=== PATIENT | female | born 1940 | race Caucasian/White ===

== ENCOUNTER 2016-08-10 20:24 | Emergency (ER) | payer BC ==
[2016-08-10 20:55] VITALS: BP 117/50
--- NOTE | 2016-08-10 21:12 | UC ---
Hand/Wrist HPI - HPI Summary HPI Summary: FOOSH INJURY TO RIGHT WRIST THIS MORNING ABOUT 8 HRS AGO PAIN AND SWELLING OF THE RIGHT WRIST , - History Of Current Complaint Chief Complaint: UCUpperExtremity Stated Complaint: RIGHT WRIST INJURY (FALL) Time Seen by Provider: 08/10/16 20:42 Hx Obtained From: Patient Onset/Duration: Sudden Onset, Lasting Hours - 8 HRS AGO, Still Present Severity Initially: Moderate Severity Currently: Moderate Character Of Pain: Aching, Stiffness Aggravating Factor(s): Movement, Lifting, Flexion, Extension Alleviating: Nothing Associated Signs And Symptoms: Positive: Swelling, Weakness. Negative: Redness , Bruising, Numbness/Tingling - Allergies/Home Medications Allergies/Adverse Reactions: Allergies Allergy/AdvReac Type Severity Reaction Status Date / Time No Known Allergies Allergy Verified 08/10/16 20:41 Home Medications: Home Medications Acetaminophen TAB* [Tylenol TAB*] 650 mg PO Q4H PRN 08/10/16 [History Confirmed 08/10/16] Alendronate TAB (NF) [Fosamax TAB (NF)] 10 mg PO WEEKLY 08/10/16 [History Confirmed 08/10/16] PMH/Surg Hx/FS Hx/Imm Hx Previously Healthy: Yes - Surgical History Surgical History: Yes Surgery Procedure, Year, and Place: bi-lat carpel tunnel, x 3 - Family History Known Family History: Negative: Diabetes - Social History Alcohol Use: None Substance Use Type: None Smoking Status (MU): Never Smoked Tobacco Review of Systems Constitutional: Negative Skin: Negative Eyes: Negative ENT: Negative Respiratory: Negative Musculoskeletal: Other: - RIGHT WRIST PAIN All Other Systems Reviewed And Are Negative: Yes Physical Exam Triage Information Reviewed: Yes Appearance: Well-Appearing, No Pain Distress, Well-Nourished Vital Signs: Initial Vital Signs Temp 97.6 F 08/10/16 20:33 Pulse 70 08/10/16 20:33 Resp 16 08/10/16 20:33 BP 117/50 08/10/16 20:33 Pulse Ox 100 08/10/16 20:33 Vital Signs Reviewed: Yes Eyes: Positive: Conjunctiva Clear ENT: Positive: Normal ENT inspection, Hearing grossly normal, Pharynx normal Neck: Positive: Supple, Nontender, No Lymphadenopathy Respiratory Exam: Normal Respiratory: Positive: Chest non-tender, Lungs clear, Normal breath sounds Cardiovascular: Positive: RRR, No Murmur, Pulses Normal Musculoskeletal: Positive: Other: - RIGHT WIRST : + SWELLING , TENDERNESS DISTAL RADIUD , LIMITED ROM ON FLEXION AND EXTENSION LIMITED STRENGTH Hand/Wrist Course/Dx - Differential Dx/Diagnosis Provider Diagnoses: RIGHT WRIST SPRAIN Discharge - Discharge Plan Condition: Stable Disposition: HOME Patient Education Materials: Wrist Sprain (ED) Referrals: Oz Decker MD [Medical Doctor] - 5 Days Joel Andrea MD [Primary Care Provider] - 7 Days Additional Instructions: IMPRESSION: NO DEFINITIVE FRACTURE. POSSIBLE MILD SCAPHOLUNATE DISSOCIATION. SUGGEST FOLLOW-UP IF THERE IS PERSISTENT CONCERN
--- NOTE | 2016-08-10 21:12 | RAD ---
INDICATION: Right wrist injury COMPARISON: None TECHNIQUE: AP, lateral, and oblique views were obtained. FINDINGS: There is osteopenia. There is minor osteoarthritis but the radiocarpal joint near the radial styloid. There is no definitive fracture. There is minimal widening of the scapholunate space. There is mild diffuse soft tissue swelling. IMPRESSION: NO DEFINITIVE FRACTURE. POSSIBLE MILD SCAPHOLUNATE DISSOCIATION. SUGGEST FOLLOW-UP IF THERE IS PERSISTENT CONCERN
== END 2016-08-10 21:34 | disposition home or self-care (01) ==
LOC: UCCORT 20:24
DX: S63.501A Unspecified sprain of right wrist, initial encounter (principal); W19.XXXA Unspecified fall, initial encounter; Y93.9 Activity, unspecified; Y92.9 Unspecified place or not applicable
CPT/HCPCS: 99203; G0463

== ENCOUNTER 2018-02-24 07:49 | Inpatient (IN) | payer MEDICARE ==
--- NOTE | 2018-02-11 09:14 | HP ---
HISTORY AND PHYSICAL: DATE OF ADMISSION: 02/24/18 ATTENDING PROVIDER: Dr. Katiana Clinton * (DICTATED BY JASBIR ABDI) HISTORY OF PRESENT ILLNESS: Ms. Damico is a 78-year-old female scheduled for an upcoming right total hip arthroplasty on 02/24/18. She has had 3 years of increasing severe right hip pain. She has failed conservative management and has elected to proceed with a right total hip arthroplasty. PAST MEDICAL HISTORY: Hepatitis. PAST SURGICAL HISTORY: 1. x3. 2. Appendectomy during one of the C-sections. 3. Bilateral carpal tunnel. MEDICATIONS: 1. Alendronate sodium 70 mg one p.o. q. weekly. 2. Multivitamin adult one by mouth every day. 3. Fish oil. 4. Glucosamine and chondroitin. ALLERGIES: No known drug allergies. FAMILY HISTORY: Maternal side hypertension. She has 1 brother with cancer. SOCIAL HISTORY: The patient lives with her . 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 She denies any tobacco, alcohol or recreational drug use. She is right-hand dominant. REVIEW OF SYSTEMS: General: The patient denies any fevers, chills, night sweats. No known anesthesia problems. HEENT: Denies any headaches, lightheadedness or syncopal episode. Cardiothoracic: Denies any chest pain, heart palpitations or edema. Pulmonary: Denies any shortness of breath with exertion, chronic cough, COPD, or asthma. GI: Denies any nausea or vomiting, diarrhea or constipation. : Denies any nocturia, urinary frequency or urgency. MSK: Denies any chronic or intermittent back pain or fractures. Neuro: Denies any paresthesias, numbness or tingling. Integument: Denies any abrasions, lesions, rashes, lumps, or open sores. PHYSICAL EXAMINATION GENERAL: The patient is alert and oriented x3, appropriate mood and affect, in no acute distress. HEENT: Normocephalic atraumatic. Hearing and vision are grossly intact. PULMONARY: Lungs are clear to auscultation bilaterally with no wheezes, rales or rhonchi. CARDIO: Regular rate and rhythm. Normal S1 and S2. No appreciable S3 or S4. No murmurs, rubs or gallops. MSK: Right lower extremity: The patient's skin is intact. No abrasions, lesions or open wounds. Hip flexion to 80 degrees with groin pain. Lacks 5 degrees from neutral and has no internal rotation. She has about 25 degrees of external rotation with groin pain. She can actively flex and abduct the hip, but there is also groin pain. She is neurovascularly intact distally with a 2+ dorsalis pedis pulse. IMPRESSION: Right hip osteoarthritis, severe, end stage. PLAN: Plan to the OR for a right total hip arthroplasty on 02/24/18 to be performed by Dr. Katiana Clinton. The patient will return in 10 to 14 days postoperatively for suture removal and followup. The risks and benefits and complications were discussed with the patient and informed consent was obtained. JASBIR ABDI [id number]/CPS #: [id number] [place]
[~2018-02-24 07:49] MED LIST: Buffered Lidocaine 0.9% SYRIN* 5 ML/SYR SYRINGE INTRADERM ONE; Propofol* 500 MG/50 ML BTL ONE; ceFAZolin 2 GM PREMIX (*) 2 GM/50 ML BAG IVPB ONE
--- OUTSIDE RECORDS SUMMARY | 2018-02-24 07:55 | XMS REPORT ---
:1940 External Reference #:[id number] Author Organization [employer] Address [address] [facility] [address] Phone [phone] Care Team Providers Name Role Phone Joel Andrea MD Primary Care Physician Unavailable Payers Type Date Identification Numbers Payment Provider Subscriber Health Maintenance Policy Number: Medicare Blue [facility] Hailey Damico Organization (O) [id number] PayID: [id number] [address] [address] [place] [address] Problems Date Description Provider Status Onset: 01/15/2018 Arthralgia of the pelvic region and thigh Katiana Clinton M.D. Active Onset: 01/14/2018 Localized, primary osteoarthritis of the Katiana Clinton M.D. Active pelvic region and thigh Family History Date Family Member(s) Problem(s) Comments General frontal Lobe deterioration Mother Diabetes of heart attack at 84 Social History Type Date Description Comments Marital Status Lives With Spouse Occupation Not Currently Working ETOH Use Denies alcohol use Smoking Patient has never smoked Recreational Drug Use Denies Drug Use Daily Caffeine Consumes on average 2 cups of regular coffee per day Exercise Type/Frequency Exercises regularly Allergies, Adverse Reactions, Alerts Date Description Reaction Status Severity Comments 08/26/2016 NKDA active Medications Medication Date Status Form Strength Qnty SIG Indications Ordering Provider Alendronate Active Tablets 70mg 1 po q Villatoro, Sodium 00 weekly Danielle, PRODUCTION CONTROL COORDINATOR Multivitamin Active Tablets 1 by Unknown Adult 00 mouth every day Vital Signs Date Vital Result Comment 02/06/2018 Height 63 inches 5'3" Weight 132.00 lb Heart Rate 66 /min BP Systolic Sitting 110 mmHg BP Diastolic Sitting 70 mmHg Respiratory Rate 16 /min Pain Level 6 BMI (Body Mass Index) 23.4 kg/m2 01/14/2018 Height 63 inches 5'3" Weight 130.00 lb BP Systolic Sitting 128 mmHg BP Diastolic Sitting 68 mmHg Respiratory Rate 16 /min Body Temperature 98.3 F Pain Level 5 BMI (Body Mass Index) 23.0 kg/m2 09/16/2016 Height 63 inches 5'3" Weight 132.00 lb BP Systolic Sitting 122 mmHg BP Diastolic Sitting 68 mmHg Respiratory Rate 16 /min Pain Level 2 BMI (Body Mass Index) 23.4 kg/m2 08/26/2016 Height 63 inches 5'3" Weight 132.00 lb Heart Rate 74 /min BP Systolic Sitting 124 mmHg BP Diastolic Sitting 76 mmHg BMI (Body Mass Index) 23.4 kg/m2 Results Description No Information Procedures Description No Information Encounters Type Date Location Provider CPT E/M Dx Office Visit 01/14/2018 [facility] Katiana Clinton M.D. 79637 M25.551 9:45a [facility] [place] M16.11 Office Visit 09/16/2016 9:15a [facility] [address] M25.331 [employer] [facility] AT [place] Office Visit 08/26/2016 10:15[place] [facility] [address] M25.331 [facility] AT [place] Plan of Care Future Appointment(s):03/09/2018 9:15 am - Katiana Clinton M.D. at [facility]02/24/2018 10:30 am - Hernan David PA-C at [facility]02/24/2018 10:30 am - JASBIR Pruitt at [facility]02/24/2018 10:30 am - Katiana Clinton M.D. at [facility]02/06/2018 - Katiana Clinton M.D.M25.551 Pain in right hipFollow up:Follow up: 2 weeks after [id number] Unilateral primary osteoarthritis, right hip
--- OUTSIDE RECORDS SUMMARY | 2018-02-24 07:55 | XMS REPORT ---
:1940 External Reference #:[id number] Author Organization [employer] Address [address] [facility] [place] [address] Phone [phone] Care Team Providers Name Role Phone Joel Andrea MD Primary Care Physician Unavailable Payers Type Date Identification Numbers Payment Provider Subscriber Health Maintenance Policy Number: Medicare Blue [facility] Hailey Damico Organization (O) [id number] PayID: [id number] [address] [address] [place] [address] Problems Date Description Provider Status Onset: 01/15/2018 [...] po q Villatoro, Sodium 00 weekly Danielle, OLERICULTURIST Multivitamin Active Tablets 1 by Unknown Adult [...] Visit 01/14/2018 [facility] Katiana Clinton M.D. 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 AT [place] Plan of Care Future Appointment(s):03/09/2018 9:15 am - Katiana Clinton M.D. at [facility]02/24/2018 10:30 am - Hernan David PA-C at [facility]02/24/2018 10:30 am - JASBIR Pruitt at [facility]02/24/2018 10:30 am - Katiana Clinton M.D. at [facility]02/06/2018 - Katiana Clinton M.D.M25.551 Pain in right hipFollow up:Follow up: 2 weeks after [id number] Unilateral primary osteoarthritis, right hip
--- OUTSIDE RECORDS SUMMARY | 2018-02-24 07:56 | XMS REPORT ---
:1940 External Reference #:[id number] Author Organization [facility] Address [address] [place] [address] Phone [phone] Care Team Providers Name Role Phone Joel Andrea MD Primary Care Physician Unavailable Payers Type Date Identification Numbers Payment Provider Subscriber Commercial Policy Number: [id number] Medicare Blue Ppo Hailey Damico PayID: [id number] [place] [address] Problems Date Description Provider Status Onset: 05/30/2011 Mixed hyperlipidemia Joel Andrea MD Active Onset: 05/30/2011 Lymphadenopathy Joel Andrea MD Active Onset: 05/30/2011 Disorder of skin Joel Andrea MD Active Onset: 12/12/2011 Lyme disease Joel Andrea MD Active Family History Date Family Member(s) Problem(s) Comments General Melanoma General Heart Disease General Hypertension General Parkinson's General Hypercholesterolemia General Diabetes Mellitus, II Father Hyperlipidemia Father Hypertension First Brother Dementia First Brother Parkinson's Disease Second Brother Dementia Second Brother Second Brother ALS Social History Type Date Description Comments Cigarette Use Denies Smoking ETOH Use Rarely consumes alcohol Smoking Patient has never smoked Allergies, Adverse Reactions, Alerts Date Description Reaction Status Severity Comments 11/22/2010 NKDA active Medications Medication Date Status Form Strength Qnty SIG Indications Ordering Provider Alendronate 02/04/ Active Tablets 70mg 14tabs take 1 Elyn Sodium 2018 tablet by MD Emre mouth weekly Vitamin D 11/22/ Active Capsules 1000Unit 180cap 1 po qd Elyn 2010 s MD Emre [place] 3 / Fish 04/03/ Active 1000/200 1 cap po Elyn Oil 2010 mg qd otc MD Emre Multivitamins 03/31/ Active Tablets 100tab 1 po qd Brigido Gonzales s MD Te Doxycycline 08/24/ Hx Tablets 100mg 60tabs 1 by mouth Chaseyn Monohydrate 2014 - by bid Ring, 2014 Doxycycline 12/11/ Hx Caps DR 100mg 60caps 1 po bid Elyn Hyclate 2011 - Part Ring, 2011 Doxycycline 11/22/ Hx Capsules 100mg 28caps 1 po bid Chaseyn Hyclate 2010 - Ring, 2010 Glucosamine-Cho 04/03/ Hx Capsules 500-400mg 1 po bid Elyn ndroitin 2009 - Emre, 2017 Metamucil 04/03/ Hx Capsules 0.52gm qhs Joel Andrea MD 2015 Aspir-81 04/03/ Hx Tablets DR 81mg 90tabs qd Joel 2009 Valentin Andrea MD 2015 Benadryl 01/23/ Hx Capsules 25mg 50caps 1 po prn 691.8 Shea 2009 - as Te, 09/15/ kathrine Cooley 2017 Betamethasone 01/23/ Hx Cream 0.1% 30gm apply 691.8 Shea Valerate 2009 - sparingly Te, 03/05/ delano Cooley 2016 affected areas daily Calcium/Vitamin 03/31/ Hx Tablets 500/200 1 po qd Brigido Traore 2009 - MD Te 2017 Fosamax / Hx Tablets 70mg 12tabs 1 qweek Aidan, 0000 - Maryellen 05/30/ Vale [employer] 2010 Medications Administered in Office Medication Date Status Form Strength Qnty SIG Indications Ordering Provider H1N1 Administered Injection Brigido Campbell Administration 009 MD Te -Use Immunizations CPT Code Status Date Vaccine Lot # [id number] Given 05/12/2017 Influenza Virus (Afluria) Split Virus 3 Years [id number] Of Age And Older 02441 Given 01/06/2017 Pneumococcal Conjugate Vaccine 13 Valent For [id number] Intramuscular Use Q2037 Given 07/08/2016 Influenza Vaccine (Fluvirin) 5 Years Of Age Or [id number] Older Q2037 Given 11/28/2015 Influenza Vaccine (Fluvirin) 5 Years Of Age Or Older Q2038 Given 08/11/2014 Influenza Vaccine (Fluzone) Administered Age 3 And Older Q2038 Given 08/11/2014 Influenza Vaccine (Fluzone) Administered Age 3 [id number] And Older Q2037 Given 07/13/2013 Influenza Vaccine (Fluvirin) 5 Years Of Age Or Older [id number] Given 07/13/2013 Influenza Vaccine (Fluvirin) 5 Years Of Age Or [id number] Older 20978 Given 06/22/2012 Tetanus,Diphtheria,Adut/Adol Pertussis Q2037 Given 06/10/2012 Influenza Vaccine (Fluvirin) 5 Years Of Age Or Older Q2037 Given 06/10/2012 Influenza Vaccine (Fluvirin) 5 Years Of Age Or [id number] Older 07151 Given 03/18/2012 Zostavax [id number] Q2036 Given 05/30/2011 Flulaval [id number] Given 05/04/2009 Influenza Vaccine 32546 Given 06/11/[place] [address] Given 12/22/2003 Tetanus And Diptheria Toxiods Vital Signs Date Vital Result Comment 02/04/2018 BP Systolic 128 mmHg BP Diastolic 70 mmHg Heart Rate 84 /min Height 62.25 inches 5'2.25" Weight 132.00 lb BMI (Body Mass Index) 23.9 kg/m2 O2 % BldC Oximetry 96 % 09/15/2017 BP Systolic 124 mmHg BP Diastolic 68 mmHg Heart Rate 68 /min Height 62.25 inches 5'2.25" Weight 130.00 lb BMI (Body Mass Index) 23.6 kg/m2 O2 % BldC Oximetry 94 % 05/12/2017 BP Systolic 110 mmHg BP Diastolic 64 mmHg Height 62.25 inches 5'2.25" Weight 130.00 lb BMI (Body Mass Index) 23.6 kg/m2 01/09/2017 BP Systolic 122 mmHg BP Diastolic 80 mmHg 01/06/2017 BP Systolic 120 mmHg BP Diastolic 72 mmHg Height 65 inches 5'5" Weight 128.00 lb BMI (Body Mass Index) 21.3 kg/m2 08/23/2016 BP Systolic 140 mmHg BP Diastolic 90 mmHg 07/08/2016 BP Systolic 122 mmHg BP Diastolic 74 mmHg Height 64 inches 5'4" Weight 135.00 lb BMI (Body Mass Index) 23.2 kg/m2 03/05/2016 BP Systolic 128 mmHg BP Diastolic 68 mmHg Height 64 inches 5'4" Weight 136.00 lb BMI (Body Mass Index) 23.3 kg/m2 11/28/2015 BP Systolic 140 mmHg BP Diastolic 80 mmHg Height 64 inches 5'4" Weight 141.00 lb BMI (Body Mass Index) 24.2 kg/m2 05/18/2015 BP Systolic 122 mmHg BP Diastolic 70 mmHg Height 64 inches 5'4" Weight 136.00 lb BMI (Body Mass Index) 23.3 kg/m2 08/24/2014 BP Systolic 118 mmHg BP Diastolic 76 mmHg Height 64 inches 5'4" Weight 142.00 lb BMI (Body Mass Index) 24.4 kg/m2 02/08/2014 BP Systolic 132 mmHg BP Diastolic 70 mmHg Height 64 inches 5'4" Weight 145.00 lb BMI (Body Mass Index) 24.9 kg/m2 08/12/2013 BP Systolic 120 mmHg BP Diastolic 76 mmHg Height 66 inches 5'6" Weight 143.00 lb BMI (Body Mass Index) 23.1 kg/m2 06/22/2012 BP Systolic 130 mmHg BP Diastolic 80 mmHg Height 66 inches 5'6" Weight 148.00 lb BMI (Body Mass Index) 23.9 kg/m2 12/12/2011 BP Systolic 120 mmHg BP Diastolic 60 mmHg Height 66 inches 5'6" 12/03/2011 BP Systolic 120 mmHg BP Diastolic 70 mmHg Height 66 inches 5'6" Weight 144.00 lb BMI (Body Mass Index) 23.2 kg/m2 05/30/2011 BP Systolic 122 mmHg BP Diastolic 60 mmHg Height 66 inches 5'6" Weight 147.00 lb BMI (Body Mass Index) 23.7 kg/m2 11/22/2010 BP Systolic 118 mmHg BP Diastolic 74 mmHg Height 66 inches 5'6" Weight 149.00 lb BMI (Body Mass Index) 24.0 kg/m2 04/26/2010 BP Systolic 108 mmHg BP Diastolic 70 mmHg Weight 148.00 lb 04/03/2010 BP Systolic 120 mmHg BP Diastolic 76 mmHg Weight 150.00 lb Results Test Date Test Result H/L Range Note General Health Panel [facility] 02/02/2018 TSH 2.72 mIU/L 0.40-4.50 1, 2 T4,Free 1.1 ng/dL 0.8-1.8 1 CBC W/ Diff & PLT 02/02/2018 WBC 4.0 thous/L 3.8-10.8 1 RBC 4.21 mill/L 3.80-5.10 1 Hemoglobin 13.3 g/dL 11.7-15.5 1 Hematocrit 40.1 % 35.0-45.0 1 MCV 95.3 FL 80.0-100.0 1 MCH 31.5 pg 27.0-33.0 1 MCHC 33.1 g/dL 32.0-36.0 1 RDW 14.8 % 11.0-15.0 1 Platelet Count 209 thous/L 140-400 1 Platelet Sufficiency PENDING 1 MPV 9.6 FL 7.5-12.5 1 Neutrophils,Absolute 2610 cells/L 9846-1668 1 Bands,Absolute PENDING 1 Metamyelocytes,Absolute PENDING 1 Myelocytes,Absolute PENDING 1 Promyelocytes,Absolute PENDING 1 Lymphocytes,Absolute 990 cells/L 850-3900 1 Monocytes,Absolute 320 cells/L 200-950 1 Eosinophils,Absolute 90 cells/L 15-500 1 Basophils,Absolute 20 cells/L 0-200 1 Blast Cells,Absolute PENDING 1 Nucleated RBC,Absolute PENDING 1 Total Neutrophils,% 65 % 40-75 1 Bands,% PENDING 1 Metamyelocytes,% PENDING 1 Myelocytes,% PENDING 1 Promyelocytes,% PENDING 1 Total Lymphocytes,% 25 % 12-47 1 Monocytes,% 8 % 4-12 1 Eosinophils,% 2 % 0-4 1 Basophils,% 1 % 0-1 1, 3 Blasts,% PENDING 1 Nucleated RBC PENDING 1 RBC Morphology PENDING 1 Anisocytosis PENDING 1 Poikilocytosis PENDING 1 Microcytosis PENDING 1 Macrocytosis PENDING 1 Polychromasia PENDING 1 Hypochromasia PENDING 1 Target Cells PENDING 1 Basophilic Stippling PENDING 1 Comment PENDING 1 Comp Metabolic Panel 02/02/2018 Sodium 139 mmol/L 135-146 1 Potassium 4.4 mmol/L 3.5-5.3 1 Chloride 105 mmol/L 98-110 1 Carbon Dioxide 26 mmol/L 20-31 1 Calcium 9.1 mg/dL 8.6-10.4 1 Alkaline Phosphatase 42 U/L 33-130 1 Ast 17 U/L 10-35 1 Alt 12 U/L 6-29 1 Bilirubin,Total 0.5 mg/dL 0.2-1.2 1 Glucose 94 mg/dL 65-99 1, 4 Urea Nitrogen (BUN) 11 mg/dL 7-25 1 Creatinine 0.69 mg/dL 0.60-0.93 1, 5 BUN/Creatinine Ratio 16.2 6-22 1 Protein,Total 7.0 g/dL 6.1-8.1 1 Albumin 4.4 g/dL 3.6-5.1 1 Globulin,Calculated 2.6 g/dL 1.9-3.7 1 A/G Ratio 1.7 1.0-2.5 1 Egfr Non-Afr. Afghan 85 ML/MIN/1.73M2 > Or=60 1 Egfr 98 ML/MIN/1.73M2 > Or=60 1 Lipid Panel 02/02/2018 Cholesterol 206 mg/dL High <199 1 HDL Cholesterol 65 mg/dL >50 1 Cholesterol/HDL Ratio 3.2 CALC <5.0 1 LDL Chol,Calculated 118 mg/dL High 0-100 1, 6 Triglycerides 115 mg/dL <150 1 Non-HDL Cholesterol 141 mg/dL High <130 1, 7 CBC W/ Diff & PLT 09/08/2017 WBC 3.2 thous/L Low 3.8-10.8 RBC 4.63 mill/L 3.80-5.10 Hemoglobin 14.8 g/dL 11.7-15.5 Hematocrit 43.9 % 35.0-45.0 MCV 94.8 FL 80.0-100.0 MCH 32.0 pg 27.0-33.0 MCHC 33.7 g/dL 32.0-36.0 RDW 14.4 % 11.0-15.0 Platelet Count 194 thous/L 140-400 Platelet Sufficiency PENDING MPV 9.1 FL 7.5-12.5 Neutrophils,Absolute 1440 cells/L Low 5350-0079 Bands,Absolute PENDING Metamyelocytes,Absolute PENDING Myelocytes,Absolute PENDING Promyelocytes,Absolute PENDING Lymphocytes,Absolute 1250 cells/L 850-3900 Monocytes,Absolute 400 cells/L 200-950 Eosinophils,Absolute 60 cells/L 15-500 Basophils,Absolute 30 cells/L 0-200 Blast Cells,Absolute PENDING Nucleated RBC,Absolute PENDING Total Neutrophils,% 45 % 40-75 Bands,% PENDING Metamyelocytes,% PENDING Myelocytes,% PENDING Promyelocytes,% PENDING Total Lymphocytes,% 39 % 12-47 Monocytes,% 13 % High 4-12 Eosinophils,% 2 % 0-4 Basophils,% 1 % 0-1 8 Blasts,% PENDING Nucleated RBC PENDING RBC Morphology PENDING Anisocytosis PENDING Poikilocytosis PENDING Microcytosis PENDING Macrocytosis PENDING Polychromasia PENDING Hypochromasia PENDING Target Cells PENDING Basophilic Stippling PENDING Comment PENDING Basic Metabolic Panel 05/06/2017 Sodium 140 mmol/L 135-146 Potassium 4.6 mmol/L 3.5-5.3 Chloride 104 mmol/L 98-110 Carbon Dioxide 30 mmol/L 20-31 Calcium 9.3 mg/dL 8.6-10.4 Glucose 88 mg/dL 65-99 9 Urea Nitrogen 14 mg/dL 7-25 Creatinine 0.76 mg/dL 0.60-0.93 10 BUN/Creatinine Ratio 18.3 6-22 Egfr Non-Afr. Afghan 77 ML/MIN/1.73M2 > Or=60 Egfr 89 ML/MIN/1.73M2 > Or=60 CBC W/ Diff & PLT 05/06/2017 WBC 4.5 thous/L 3.8-10.8 RBC 4.38 mill/L 3.80-5.10 Hemoglobin 13.9 g/dL 11.7-15.5 Hematocrit 41.1 % 35.0-45.0 MCV 93.8 FL 80.0-100.0 MCH 31.9 pg 27.0-33.0 MCHC 34.0 g/dL 32.0-36.0 RDW 14.7 % 11.0-15.0 Platelet Count 215 thous/L 140-400 Platelet Sufficiency NORMAL Normal MPV 9.0 FL 7.5-12.5 Neutrophils,Absolute 2840 cells/L 1780-6664 Bands,Absolute PENDING Metamyelocytes,Absolute PENDING Myelocytes,Absolute PENDING Promyelocytes,Absolute PENDING Lymphocytes,Absolute 1190 cells/L 850-3900 Monocytes,Absolute 320 cells/L 200-950 Eosinophils,Absolute 100 cells/L 15-500 Basophils,Absolute 10 cells/L 0-200 Blast Cells,Absolute PENDING Nucleated RBC,Absolute PENDING Total Neutrophils,% 64 % 40-75 Bands,% PENDING Metamyelocytes,% PENDING Myelocytes,% PENDING Promyelocytes,% PENDING Total Lymphocytes,% 27 % 12-47 Monocytes,% 7 % 4-12 Eosinophils,% 2 % 0-4 Basophils,% 0 % 0-1 11 Blasts,% PENDING Nucleated RBC PENDING RBC Morphology NORMAL Anisocytosis PENDING Poikilocytosis PENDING Microcytosis PENDING Macrocytosis PENDING Polychromasia PENDING Hypochromasia PENDING Target Cells PENDING Basophilic Stippling PENDING Comment PENDING Comp Metabolic Panel 12/24/2016 Sodium 139 mmol/L 135-146 1 Potassium 4.5 mmol/L 3.5-5.3 1 Chloride 105 mmol/L 98-110 1 Carbon Dioxide 25 mmol/L 20-31 1 Calcium 9.2 mg/dL 8.6-10.4 1 Alkaline Phosphatase 49 U/L 33-130 1 Ast 20 U/L 10-35 1 Alt 13 U/L 6-29 1 Bilirubin,Total 0.4 mg/dL 0.2-1.2 1 Glucose 90 mg/dL 65-99 1, 12 Urea Nitrogen 17 mg/dL 7-25 1 Creatinine 0.72 mg/dL 0.60-0.93 1, 13 BUN/Creatinine Ratio 23.9 High 6-22 1 Protein,Total 6.9 g/dL 6.1-8.1 1 Albumin 4.3 g/dL 3.6-5.1 1 Globulin,Calculated 2.6 g/dL 1.9-3.7 1 A/G Ratio 1.6 1.0-2.5 1 Egfr Non-Afr. Afghan 82 ML/MIN/1.73M2 > Or=60 1 Egfr 96 ML/MIN/1.73M2 > Or=60 1 Hepatic Function Panel 12/24/2016 Alkaline Phosphatase 49 U/L 33-130 1 Ast 20 U/L 10-35 1 Alt 13 U/L 6-29 1 Bilirubin,Total 0.4 mg/dL 0.2-1.2 1 Bilirubin,Direct 0.1 mg/dL < Or=0.2 1 Protein,Total 6.9 g/dL 6.1-8.1 1 Albumin 4.3 g/dL 3.6-5.1 1 Globulin,Calculated 2.6 g/dL 1.9-3.7 1 A/G Ratio 1.6 1.0-2.5 1 General Health Panel 12/24/2016 TSH 3.45 mIU/L 0.40-4.50 1, 14 T4,Free 1.1 ng/dL 0.8-1.8 1 Laboratory test finding 12/24/2016 Cholesterol 217 mg/dL High 125-200 1 CBC W/ Diff & PLT 12/24/2016 WBC 4.4 thous/L 3.8-10.8 1 RBC 4.38 mill/L 3.80-5.10 1 Hemoglobin 13.5 g/dL 11.7-15.5 1 Hematocrit 41.0 % 35.0-45.0 1 MCV 93.7 FL 80.0-100.0 1 MCH 30.9 pg 27.0-33.0 1 MCHC 32.9 g/dL 32.0-36.0 1 RDW 14.2 % 11.0-15.0 1 Platelet Count 226 thous/L 140-400 1 Platelet Sufficiency PENDING 1 MPV 9.0 FL 7.5-12.5 1 Neutrophils,Absolute 2400 cells/L 2309-0981 1 Bands,Absolute PENDING 1 Metamyelocytes,Absolute PENDING 1 Myelocytes,Absolute PENDING 1 Promyelocytes,Absolute PENDING 1 Lymphocytes,Absolute 1380 cells/L 850-3900 1 Monocytes,Absolute 360 cells/L 200-950 1 Eosinophils,Absolute 230 cells/L 15-500 1 Basophils,Absolute 10 cells/L 0-200 1 Blast Cells,Absolute PENDING 1 Nucleated RBC,Absolute PENDING 1 Total Neutrophils,% 55 % 40-75 1 Bands,% PENDING 1 Metamyelocytes,% PENDING 1 Myelocytes,% PENDING 1 Promyelocytes,% PENDING 1 Total Lymphocytes,% 32 % 12-47 1 Monocytes,% 8 % 4-12 1 Eosinophils,% 5 % High 0-4 1 Basophils,% 0 % 0-1 1, 15 Blasts,% PENDING 1 Nucleated RBC PENDING 1 RBC Morphology PENDING 1 Anisocytosis PENDING 1 Poikilocytosis PENDING 1 Microcytosis PENDING 1 Macrocytosis PENDING 1 Polychromasia PENDING 1 Hypochromasia PENDING 1 Target Cells PENDING 1 Basophilic Stippling PENDING 1 Comment PENDING 1 Basic Metabolic Panel 07/01/2016 Sodium 139 mmol/L 135-146 1 Potassium 4.3 mmol/L 3.5-5.3 1 Chloride 104 mmol/L 98-110 1 Carbon Dioxide 29 mmol/L 20-31 1 Calcium 9.5 mg/dL 8.6-10.4 1 Glucose 91 mg/dL 65-99 1, 16 Urea Nitrogen 18 mg/dL 7-25 1 Creatinine 0.77 mg/dL 0.60-0.93 1, 17 BUN/Creatinine Ratio 22.9 High 6-22 1, 18 Egfr Non-Afr. Afghan 76 ML/MIN/1.73M2 > Or=60 1 Egfr 88 ML/MIN/1.73M2 > Or=60 1 Lipid Panel 07/01/2016 Cholesterol 230 mg/dL High 125-200 1 HDL Cholesterol 68 mg/dL > Or=46 1 Cholesterol/HDL Ratio 3.4 < Or=5.0 1 LDL Chol,Calculated 143 mg/dL High <130 1, 19 Triglycerides 96 mg/dL <150 1 Non-HDL Cholesterol 162 mg/dL High 1, 20 CBC W/ Diff & PLT 07/01/2016 WBC 4.4 thous/L 3.8-10.8 1 RBC 4.29 mill/L 3.80-5.10 1 Hemoglobin 13.2 g/dL 11.7-15.5 1 Hematocrit 40.4 % 35.0-45.0 1 MCV 94.2 FL 80.0-100.0 1 MCH 30.8 pg 27.0-33.0 1 MCHC 32.7 g/dL 32.0-36.0 1 RDW 14.3 % 11.0-15.0 1 Platelet Count 219 thous/L 140-400 1 Platelet Sufficiency PENDING 1 MPV 9.7 FL 7.5-11.5 1 Neutrophils,Absolute 2540 cells/L 8922-7865 1 Bands,Absolute PENDING 1 Metamyelocytes,Absolute PENDING 1 Myelocytes,Absolute PENDING 1 Promyelocytes,Absolute PENDING 1 Lymphocytes,Absolute 1420 cells/L 850-3900 1 Monocytes,Absolute 350 cells/L 200-950 1 Eosinophils,Absolute 90 cells/L 15-500 1 Basophils,Absolute 20 cells/L 0-200 1 Blast Cells,Absolute PENDING 1 Nucleated RBC,Absolute PENDING 1 Total Neutrophils,% 58 % 40-75 1 Bands,% PENDING 1 Metamyelocytes,% PENDING 1 Myelocytes,% PENDING 1 Promyelocytes,% PENDING 1 Total Lymphocytes,% 32 % 12-47 1 Monocytes,% 8 % 4-12 1 Eosinophils,% 2 % 0-4 1 Basophils,% 0 % 0-1 1, 21 Blasts,% PENDING 1 Nucleated RBC PENDING 1 RBC Morphology PENDING 1 Anisocytosis PENDING 1 Poikilocytosis PENDING 1 Microcytosis PENDING 1 Macrocytosis PENDING 1 Polychromasia PENDING 1 Hypochromasia PENDING 1 Target Cells PENDING 1 Basophilic Stippling PENDING 1 Comment PENDING 1 Lipid Panel 02/27/2016 Cholesterol 211 mg/dL High 125-200 1 HDL Cholesterol 60 mg/dL > Or=46 1 Cholesterol/HDL Ratio 3.5 < Or=5.0 1 LDL Chol,Calculated 131 mg/dL High <130 1, 22 Triglycerides 100 mg/dL <150 1 Non-HDL Cholesterol 151 mg/dL 1, 23 Hepatic Function Panel 11/21/2015 Alkaline Phosphatase 52 U/L 33-130 Ast 19 U/L 10-35 Alt 12 U/L 6-29 Bilirubin,Total 0.6 mg/dL 0.2-1.2 Bilirubin,Direct 0.1 mg/dL < Or=0.2 Protein,Total 7.4 g/dL 6.1-8.1 Albumin 4.6 g/dL 3.6-5.1 Globulin,Calculated 2.8 g/dL 1.9-3.7 A/G Ratio 1.7 1.0-2.5 General Health Panel 11/21/2015 TSH 2.09 mIU/L 0.40-4.50 24 T4,Free 1.0 ng/dL 0.8-1.8 CMP W/O Egfr 11/21/2015 Sodium 139 mmol/L 135-146 Potassium 4.4 mmol/L 3.5-5.3 Chloride 102 mmol/L 98-110 Carbon Dioxide 28 mmol/L 19-30 Calcium 9.8 mg/dL 8.6-10.4 Alkaline Phosphatase 52 U/L 33-130 Ast 19 U/L 10-35 Alt 12 U/L 6-29 Bilirubin,Total 0.6 mg/dL 0.2-1.2 Glucose 84 mg/dL 65-99 25 Urea Nitrogen 14 mg/dL 7-25 Creatinine 0.82 mg/dL 0.60-0.93 26 BUN/Creatinine Ratio 17.1 6-22 Protein,Total 7.4 g/dL 6.1-8.1 Albumin 4.6 g/dL 3.6-5.1 Globulin,Calculated 2.8 g/dL 1.9-3.7 A/G Ratio 1.7 1.0-2.5 Lipid Panel 11/21/2015 Cholesterol 233 mg/dL High 125-200 HDL Cholesterol 65 mg/dL > Or=46 Cholesterol/HDL Ratio 3.6 < Or=5.0 LDL Chol,Calculated 144 mg/dL High <130 27 Triglycerides 122 mg/dL <150 Non-HDL Cholesterol 168 mg/dL High 28 CBC W/ Diff & PLT 11/21/2015 WBC 4.3 thous/L 3.8-10.8 RBC 4.39 mill/L 3.80-5.10 Hemoglobin 13.3 g/dL 11.7-15.5 Hematocrit 41.2 % 35.0-45.0 MCV 94.0 FL 80.0-100.0 MCH 30.4 pg 27.0-33.0 MCHC 32.3 g/dL 32.0-36.0 RDW 13.7 % 11.0-15.0 Platelet Count 219 thous/L 140-400 Platelet Sufficiency PENDING MPV 9.6 FL 7.5-11.5 Neutrophils,Absolute 2900 cells/L 3311-8245 Bands,Absolute PENDING Metamyelocytes,Absolute PENDING Myelocytes,Absolute PENDING Promyelocytes,Absolute PENDING Lymphocytes,Absolute 1240 cells/L 850-3900 Monocytes,Absolute 120 cells/L Low 200-950 Eosinophils,Absolute 60 cells/L 15-500 Basophils,Absolute 10 cells/L 0-200 Blast Cells,Absolute PENDING Nucleated RBC,Absolute PENDING Total Neutrophils,% 67 % 40-75 Bands,% PENDING Metamyelocytes,% PENDING Myelocytes,% PENDING Promyelocytes,% PENDING Total Lymphocytes,% 29 % 12-47 Monocytes,% 3 % Low 4-12 Eosinophils,% 1 % 0-4 Basophils,% 0 % 0-1 29 Blasts,% PENDING Nucleated RBC PENDING RBC Morphology PENDING Anisocytosis PENDING Poikilocytosis PENDING Microcytosis PENDING Macrocytosis PENDING Polychromasia PENDING Hypochromasia PENDING Target Cells PENDING Basophilic Stippling PENDING Comment PENDING CBC W/ Diff & PLT 05/15/2015 WBC 5.6 thous/L 3.8-10.8 1 RBC 4.29 mill/L 3.80-5.10 1 Hemoglobin 13.3 g/dL 11.7-15.5 1 Hematocrit 41.0 % 35.0-45.0 1 MCV 95.6 FL 80.0-100.0 1 MCH 31.1 pg 27.0-33.0 1 MCHC 32.5 g/dL 32.0-36.0 1 RDW 13.8 % 11.0-15.0 1 Platelet Count 214 thous/L 140-400 1 Platelet Sufficiency PENDING 1 MPV 9.7 FL 7.5-11.5 1 Neutrophils,Absolute 3840 cells/L 7544-5022 1 Bands,Absolute PENDING 1 Metamyelocytes,Absolute PENDING 1 Myelocytes,Absolute PENDING 1 Promyelocytes,Absolute PENDING 1 Lymphocytes,Absolute 1310 cells/L 850-3900 1 Monocytes,Absolute 400 cells/L 200-950 1 Eosinophils,Absolute 60 cells/L 15-500 1 Basophils,Absolute 20 cells/L 0-200 1 Blast Cells,Absolute PENDING 1 Nucleated RBC,Absolute PENDING 1 Total Neutrophils,% 68 % 40-75 1 Bands,% PENDING 1 Metamyelocytes,% PENDING 1 Myelocytes,% PENDING 1 Promyelocytes,% PENDING 1 Total Lymphocytes,% 23 % 12-47 1 Monocytes,% 7 % 4-12 1 Eosinophils,% 1 % 0-4 1 Basophils,% 0 % 0-1 1, 30 Blasts,% PENDING 1 Nucleated RBC PENDING 1 RBC Morphology PENDING 1 Anisocytosis PENDING 1 Poikilocytosis PENDING 1 Microcytosis PENDING 1 Macrocytosis PENDING 1 Polychromasia PENDING 1 Hypochromasia PENDING 1 Target Cells PENDING 1 Basophilic Stippling PENDING 1 Comment PENDING 1 BMP W/O Egfr 05/15/2015 Sodium 139 mmol/L 135-146 1 Potassium 5.0 mmol/L 3.5-5.3 1 Chloride 101 mmol/L 98-110 1 Carbon Dioxide 30 mmol/L 19-30 1 Calcium 9.7 mg/dL 8.6-10.4 1 Glucose 86 mg/dL 65-99 1, 31 Urea Nitrogen 13 mg/dL 7-25 1 Creatinine 0.83 mg/dL 0.60-0.93 1, 32 BUN/Creatinine Ratio 15.7 6-22 1 [facility] 25-Hydroxy D 08/11/2014 Vitamin D,25-Oh,Total 39 ng/mL 30- 100 1 (D2,D3) LC/MS Vitamin D,25-Oh,D3 39 ng/mL 1 Vitamin D,25-Oh,D2 <4 ng/mL 1, 33 TSH & T4,Free 08/11/2014 TSH 3.56 mIU/L 0.40-4.50 1, 34 T4,Free 1.0 ng/dL 0.8-1.8 1 Comp Metabolic Panel 08/11/2014 Sodium 141 mmol/L 135-146 1 Potassium 4.5 mmol/L 3.5-5.3 1 Chloride 104 mmol/L 98-110 1 Carbon Dioxide 28 mmol/L 19-30 1 Calcium 9.4 mg/dL 8.6-10.4 1 Alkaline Phosphatase 56 U/L 33-130 1 Ast 24 U/L 10-35 1 Alt 17 U/L 6-29 1 Bilirubin,Total 0.6 mg/dL 0.2-1.2 1 Glucose 77 mg/dL 65-99 1, 35 Urea Nitrogen 19 mg/dL 7-25 1 Creatinine 0.82 mg/dL 0.60-0.93 1, 36 BUN/Creatinine Ratio 23.7 High 6-22 1 Protein,Total 7.5 g/dL 6.1-8.1 1 Albumin 4.6 g/dL 3.6-5.1 1 Globulin,Calculated 2.9 g/dL 1.9-3.7 1 A/G Ratio 1.6 1.0-2.5 1 Egfr Non-Afr. Afghan 71 ML/MIN/1.73M2 > Or=60 1 Egfr 83 ML/MIN/1.73M2 > Or=60 1 Lipid Panel 08/11/2014 Cholesterol 244 mg/dL High 125-200 1 HDL Cholesterol 71 mg/dL > Or=46 1 Cholesterol/HDL Ratio 3.4 < Or=5.0 1 LDL Chol,Calculated 148 mg/dL High <130 1, 37 Triglycerides 125 mg/dL <150 1 Non-HDL Cholesterol 172 mg/dL High 1, 38 CBC W/ Diff & PLT 08/11/2014 WBC 5.3 thous/L 3.8-10.8 1 RBC 4.30 mill/L 3.80-5.10 1 Hemoglobin 13.6 g/dL 11.7-15.5 1 Hematocrit 40.5 % 35.0-45.0 1 MCV 94.2 FL 80.0-100.0 1 MCH 31.6 pg 27.0-33.0 1 MCHC 33.5 g/dL 32.0-36.0 1 RDW 14.4 % 11.0-15.0 1 Platelet Count 243 thous/L 140-400 1 Platelet Sufficiency PENDING 1 Neutrophils,Absolute 3260 cells/L 0968-6085 1 Bands,Absolute PENDING 1 Metamyelocytes,Absolute PENDING 1 Myelocytes,Absolute PENDING 1 Promyelocytes,Absolute PENDING 1 Lymphocytes,Absolute 1450 cells/L 850-3900 1 Monocytes,Absolute 420 cells/L 200-950 1 Eosinophils,Absolute 160 cells/L 15-500 1 Basophils,Absolute 20 cells/L 0-200 1 Blast Cells,Absolute PENDING 1 Nucleated RBC,Absolute PENDING 1 Total Neutrophils,% 61 % Not Established 1 Bands,% PENDING 1 Metamyelocytes,% PENDING 1 Myelocytes,% PENDING 1 Promyelocytes,% PENDING 1 Total Lymphocytes,% 27 % Not Established 1 Monocytes,% 8 % Not Established 1 Eosinophils,% 3 % Not Established 1 Basophils,% 0 % Not Established 1 Blasts,% PENDING 1 Nucleated RBC PENDING 1 RBC Morphology PENDING 1 Anisocytosis PENDING 1 Poikilocytosis PENDING 1 Microcytosis PENDING 1 Macrocytosis PENDING 1 Polychromasia PENDING 1 Hypochromasia PENDING 1 Target Cells PENDING 1 Basophilic Stippling PENDING 1 Comment PENDING 1 Hepatic Function Panel 08/11/2014 Alkaline Phosphatase 56 U/L 33-130 1 Ast 24 U/L 10-35 1 Alt 17 U/L 6-29 1 Bilirubin,Total 0.6 mg/dL 0.2-1.2 1 Bilirubin,Direct 0.1 mg/dL < Or=0.2 1 Protein,Total 7.5 g/dL 6.1-8.1 1 Albumin 4.6 g/dL 3.6-5.1 1 Globulin,Calculated 2.9 g/dL 1.9-3.7 1 A/G Ratio 1.6 1.0-2.5 1 Vitamin D, 25 Hydroxy,LC/MS/MS 07/13/2013 Vitamin D,25-Oh,Total 31 ng/mL 30-100 1 Vitamin D,25-Oh,D3 31 ng/mL 1 Vitamin D,25-Oh,D2 <4 ng/mL 1, 39 TSH & T4,Free 07/13/2013 TSH 3.22 mIU/L 0.40-4.50 1, 40 T4,Free 1.1 ng/dL 0.8-1.8 1 Hepatic Function Panel 07/13/2013 Alkaline Phosphatase 52 U/L 33-130 1 Ast 21 U/L 10-35 1 Alt 16 U/L 6-29 1 Bilirubin,Total 0.5 mg/dL 0.2-1.2 1 Bilirubin,Direct 0.1 mg/dL < Or=0.2 1 Protein,Total 7.1 g/dL 6.1-8.1 1 Albumin 4.5 g/dL 3.6-5.1 1 Globulin,Calculated 2.6 g/dL 1.9-3.7 1 A/G Ratio 1.8 1.0-2.5 1 Laboratory test finding 07/13/2013 Creatine Kinase,Total 100 U/L 29-143 1 Comp Metabolic Panel 07/13/2013 Sodium 140 mmol/L 135-146 1 Potassium 4.7 mmol/L 3.5-5.3 1 Chloride 103 mmol/L 98-110 1 Carbon Dioxide 30 mmol/L 19-30 1 Calcium 9.5 mg/dL 8.6-10.4 1 Alkaline Phosphatase 52 U/L 33-130 1 Ast 21 U/L 10-35 1 Alt 16 U/L 6-29 1 Bilirubin,Total 0.5 mg/dL 0.2-1.2 1 Glucose 83 mg/dL 65-99 1, 41 Urea Nitrogen 16 mg/dL 7-25 1 Creatinine 0.83 mg/dL 0.60-0.93 1, 42 BUN/Creatinine Ratio 19.4 6-22 1 Protein,Total 7.1 g/dL 6.1-8.1 1 Albumin 4.5 g/dL 3.6-5.1 1 Globulin,Calculated 2.6 g/dL 1.9-3.7 1 A/G Ratio 1.8 1.0-2.5 1 Egfr Non-Afr. [place] 71 ML/MIN/1.73M2 > Or=60 1 Egfr 82 ML/MIN/1.73M2 > Or=60 1 Lipid Panel 07/13/2013 Cholesterol 227 mg/dL High 125-200 1 HDL Cholesterol 72 mg/dL > Or=46 1 Cholesterol/HDL Ratio 3.2 < Or=5.0 1 LDL Chol,Calculated 132 mg/dL High <130 1, 43 Triglycerides 115 mg/dL <150 1 Non-HDL Cholesterol 155 mg/dL 1, 44 CBC W/ Diff & PLT 07/13/2013 WBC 4.7 thous/L 3.8-10.8 1 RBC 4.30 mill/L 3.80-5.10 1 Hemoglobin 13.6 g/dL 11.7-15.5 1 Hematocrit 40.1 % 35.0-45.0 1 MCV 93.3 FL 80.0-100.0 1 MCH 31.6 pg 27.0-33.0 1 MCHC 33.9 g/dL 32.0-36.0 1 RDW 13.9 % 11.0-15.0 1 Platelet Count 233 thous/L 140-400 1 Neutrophils,Absolute 2800 cells/L 1019-2814 1 Lymphocytes,Absolute 1510 cells/L 850-3900 1 Monocytes,Absolute 300 cells/L 200-950 1 Eosinophils,Absolute 50 cells/L 15-500 1 Basophils,Absolute 10 cells/L 0-200 1 Total Neutrophils,% 60 % Not Established 1 Total Lymphocytes,% 32 % Not Established 1 Monocytes,% 6 % Not Established 1 Eosinophils,% 1 % Not Established 1 Basophils,% 0 % Not Established 1 Laboratory test finding 06/10/2012 Creatine Kinase,Total 131 U/L 29-143 1 Comp Metabolic Panel 06/10/2012 Sodium 140 mmol/L 135-146 1 Potassium 4.7 mmol/L 3.5-5.3 1 Chloride 102 mmol/L 98-110 1 Carbon Dioxide 31 mmol/L 21-33 1 Calcium 9.6 mg/dL 8.6-10.4 1 Alkaline Phosphatase 50 U/L 33-130 1 Ast 22 U/L 10-35 1 Alt 14 U/L 6-40 1 Bilirubin,Total 0.5 mg/dL 0.2-1.2 1 Glucose 78 mg/dL 65-99 1, 45 Urea Nitrogen 13 mg/dL 7-25 1 Creatinine 0.75 mg/dL 0.60-0.93 1, 46 BUN/Creatinine Ratio 16.7 6-22 1 Protein,Total 7.0 g/dL 6.2-8.3 1 Albumin 4.4 g/dL 3.6-5.1 1 Globulin,Calculated 2.6 g/dL 2.2-3.9 1 A/G Ratio 1.8 1.0-2.1 1 Egfr Non-Afr. Afghan 81 ML/MIN/1.73M2 > Or=60 1 Egfr 94 ML/MIN/1.73M2 > Or=60 1 TSH & T4,Free 06/10/2012 TSH 3.46 mIU/L 0.40-4.50 1, 47 T4,Free 1.2 ng/dL 0.8-1.8 1, 48 Vitamin D, 25 Hydroxy 06/10/2012 Vitamin D,25-Oh,Total 53 ng/mL 30-100 1 Vitamin D,25-Oh,D3 53 ng/mL 1 Vitamin D,25-Oh,D2 <4 ng/mL 1, 49 CBC W/ Diff & PLT 06/10/2012 WBC 4.3 thous/L 3.8-10.8 1 RBC 4.21 mill/L 3.80-5.10 1 Hemoglobin 13.8 g/dL 11.7-15.5 1 Hematocrit 41.5 % 35.0-45.0 1 MCV 98.5 FL 80.0-100.0 1 MCH 32.8 pg 27.0-33.0 1 MCHC 33.3 g/dL 32.0-36.0 1 RDW 14.0 % 11.0-15.0 1 Platelet Count 203 thous/L 140-400 1 Platelet Sufficiency NORMAL Normal 1 Neutrophils,Absolute 2320 cells/L 0743-6355 1 Lymphocytes,Absolute 1450 cells/L 850-3900 1 Monocytes,Absolute 390 cells/L 200-950 1 Eosinophils,Absolute 110 cells/L 15-500 1 Basophils,Absolute 20 cells/L 0-200 1 Total Neutrophils,% 54 % 38-80 1 Total Lymphocytes,% 34 % 15-49 1 Monocytes,% 9 % 0-13 1 Eosinophils,% 3 % 0-8 1 Basophils,% 0 % 0-2 1 RBC Morphology NORMAL 1 Laboratory test finding 06/10/2012 LDL Cholesterol,Direct 134 mg/dL High < 130 1, 50 Liver Panel 06/10/2012 Alkaline Phosphatase 50 U/L 33-130 1 GGT 16 U/L 3-65 1 Ast 22 U/L 10-35 1 Alt 14 U/L 6-40 1 LD 199 U/L 120-250 1 Bilirubin,Total 0.5 mg/dL 0.2-1.2 1 Bilirubin,Direct 0.1 mg/dL < Or=0.2 1 Protein,Total 7.0 g/dL 6.2-8.3 1 Albumin 4.4 g/dL 3.6-5.1 1 Cholesterol 214 mg/dL High 125-200 1 Laboratory test 12/03/2011 Lyme Disease,Eia 2.64 INDEX High Less Than 0.91 51 finding W/Refl WB Lyme Disease Igg,Igm 12/03/2011 Lyme Disease NEGATIVE Negative 52 (Igg),WB 18 KD (Igg) Band NONREACTIVE Nonreactive 23 KD (Igg) Band NONREACTIVE Nonreactive 28 KD (Igg) Band NONREACTIVE Nonreactive 30 KD (Igg) Band REACTIVE Nonreactive 39 KD (Igg) Band NONREACTIVE Nonreactive 41 KD (Igg) Band REACTIVE Nonreactive 45 KD (Igg) Band NONREACTIVE Nonreactive 58 KD (Igg) Band NONREACTIVE Nonreactive 66 KD (Igg) Band NONREACTIVE Nonreactive 93 KD (Igg) Band NONREACTIVE Nonreactive Lyme Disease (Igm),WB NEGATIVE Negative 53 23 KD (Igm) Band NONREACTIVE Nonreactive 39 KD (Igm) Band NONREACTIVE Nonreactive 41 KD (Igm) Band REACTIVE Nonreactive Lipid Panel 11/27/2011 Cholesterol 222 mg/dL High 125-200 HDL Cholesterol 63 mg/dL > Or=46 Cholesterol/HDL Ratio 3.5 < Or=5.0 LDL Chol,Calculated 139 mg/dL High <130 54 Triglycerides 98 mg/dL <150 Non-HDL Cholesterol 160 mg/dL 55 Hepatic Function Panel 05/21/2011 Alkaline Phosphatase 43 U/L 33-130 1 Ast 21 U/L 10-35 1 Alt 14 U/L 6-40 1 Bilirubin,Total 0.5 mg/dL 0.2-1.2 1 Bilirubin,Direct 0.1 mg/dL < Or=0.2 1 Protein,Total 7.3 g/dL 6.2-8.3 1 Albumin 4.6 g/dL 3.6-5.1 1 Globulin,Calculated 2.7 g/dL 2.2-3.9 1 A/G Ratio 1.7 1.0-2.1 1 TSH & T4,Free 05/21/2011 TSH,3RD Generation 3.86 mIU/L 0.40-4.50 1, 56 T4,Free 1.2 ng/dL 0.8-1.8 1 Laboratory test 05/21/2011 LDL Cholesterol,Direct 153 mg/dL High <130 1, 57 finding Comp Metabolic Panel 05/21/2011 Sodium 141 mmol/L 135-146 1 Potassium 4.6 mmol/L 3.5-5.3 1 Chloride 102 mmol/L 98-110 1 Carbon Dioxide 31 mmol/L 21-33 1 Calcium 9.8 mg/dL 8.6-10.2 1 Alkaline Phosphatase 43 U/L 33-130 1 Ast 21 U/L 10-35 1 Alt 14 U/L 6-40 1 Bilirubin,Total 0.5 mg/dL 0.2-1.2 1 Glucose 86 mg/dL 65-99 1, 58 Urea Nitrogen 15 mg/dL 7-25 1 Creatinine 0.92 mg/dL 0.60-1.18 1 BUN/Creatinine Ratio 16.6 6-22 1 Protein,Total 7.3 g/dL 6.2-8.3 1 Albumin 4.6 g/dL 3.6-5.1 1 Globulin,Calculated 2.7 g/dL 2.2-3.9 1 A/G Ratio 1.7 1.0-2.1 1 Egfr Non-Afr. Afghan 64 ML/MIN/1.73M2 > Or=60 1 Egfr 74 ML/MIN/1.73M2 > Or=60 1 CBC W/ Diff & PLT 05/21/2011 WBC 4.6 thous/L 3.8-10.8 1 RBC 4.28 mill/L 3.80-5.10 1 Hemoglobin 13.7 g/dL 11.7-15.5 1 Hematocrit 40.7 % 35.0-45.0 1 MCV 95.1 FL 80.0-100.0 1 MCH 31.9 pg 27.0-33.0 1 MCHC 33.6 g/dL 32.0-36.0 1 RDW 13.7 % 11.0-15.0 1 Platelet Count 195 thous/L 140-400 1 Platelet Sufficiency NORMAL Normal 1 Neutrophils,Absolute 2530 cells/L 7947-8681 1 Lymphocytes,Absolute 1670 cells/L 850-3900 1 Monocytes,Absolute 320 cells/L 200-950 1 Eosinophils,Absolute 80 cells/L 15-500 1 Basophils,Absolute 20 cells/L 0-200 1 Total Neutrophils,% 55 % 38-80 1 Total Lymphocytes,% 36 % 15-49 1 Monocytes,% 7 % 0-13 1 Eosinophils,% 2 % 0-8 1 Basophils,% 0 % 0-2 1 RBC Morphology NORMAL 1 Laboratory test finding 02/12/2011 BUN 14 mg/dL 5-23 59 Estimated GFR 02/12/2011 Creatinine 0.6 mg/dL 0.5-1.4 Glom Filtration Rate, Estimate >60 mL/min >60 If >60 mL/min >60 60 Laboratory test finding 02/12/2011 Phosphorous 3.3 mg/dL 2.4-4.7 61 Vitamin D,25-Hydroxy 41.7 ng/mL 32.0-100.0 62 PTH Intact W/Calcium 02/12/2011 Calcium 8.9 mg/dL 8.6-10.2 . See Note 63 PTH,Intact 25 pg/mL 15- Laboratory test 02/12/2011 Thyroid Stim 2.22 uIU/mL 0.49-4.67 64 finding Hormone Laboratory test 11/15/2010 LDL 137 mg/dL High <130 1, 65 finding Cholesterol,Direct HDL Cholesterol 65 mg/dL > Or=46 1 Triglycerides 152 mg/dL High <150 1 Cholesterol 243 mg/dL High 125-200 1 Comp Metabolic Panel 04/19/2010 Sodium 141 mmol/L 135-146 1 Potassium 4.4 mmol/L 3.5-5.3 1 Chloride 103 mmol/L 98-110 1 Carbon Dioxide 28 mmol/L 21-33 1 Calcium 9.3 mg/dL 8.6-10.2 1 Alkaline Phosphatase 40 U/L 33-130 1 Ast 21 U/L 10-35 1 Alt 15 U/L 6-40 1 Bilirubin,Total 0.4 mg/dL 0.2-1.2 1 Glucose 82 mg/dL 65-99 1, 66 Urea Nitrogen 15 mg/dL 7-25 1 Creatinine 0.79 mg/dL 0.60-1.18 1 BUN/Creatinine Ratio 18.5 6-22 1 Protein,Total 7.1 g/dL 6.2-8.3 1 Albumin 4.5 g/dL 3.6-5.1 1 Globulin,Calculated 2.6 g/dL 2.2-3.9 1 A/G Ratio 1.8 1.0-2.1 1 Egfr Non-Afr. Afghan >60 ML/MIN/1.73M2 > Or=60 1 Egfr >60 ML/MIN/1.73M2 > Or=60 1 Lipid Panel 04/19/2010 Cholesterol 232 mg/dL High 125-200 1 HDL Cholesterol 63 mg/dL > Or=46 1 Cholesterol/HDL Ratio 3.7 < Or=5.0 1 LDL Chol,Calculated 144 mg/dL High <130 1, 67 Triglycerides 126 mg/dL <150 1 Hepatic Function Panel 04/19/2010 Alkaline Phosphatase 40 U/L 33-130 1 Ast 21 U/L 10-35 1 Alt 15 U/L 6-40 1 Bilirubin,Total 0.4 mg/dL 0.2-1.2 1 Bilirubin,Direct 0.1 mg/dL < Or=0.2 1 Protein,Total 7.1 g/dL 6.2-8.3 1 Albumin 4.5 g/dL 3.6-5.1 1 Globulin,Calculated 2.6 g/dL 2.2-3.9 1 A/G Ratio 1.8 1.0-2.1 1 CBC W/ Diff & PLT 04/19/2010 WBC 4.2 thous/L 3.8-10.8 1 RBC 4.19 mill/L 3.80-5.10 1 Hemoglobin 13.8 g/dL 11.7-15.5 1 Hematocrit 40.0 % 35.0-45.0 1 MCV 95.4 FL 80.0-100.0 1 MCH 32.9 pg 27.0-33.0 1 MCHC 34.5 g/dL 32.0-36.0 1 RDW 13.8 % 11.0-15.0 1 Platelet Count 209 thous/L 140-400 1 Platelet Sufficiency NORMAL Normal 1 Neutrophils,Absolute 2100 cells/L 6504-3197 1 Bands,Absolute DNR cells/L 0-750 1 Metamyelocytes,Absolute DNR cells/L 0 1 Myelocytes,Absolute DNR cells/L 0 1 Promyelocytes,Absolute DNR cells/L 0 1 Lymphocytes,Absolute 1570 cells/L 850-3900 1 Monocytes,Absolute 390 cells/L 200-950 1 Eosinophils,Absolute 90 cells/L 15-500 1 Basophils,Absolute 20 cells/L 0-200 1 Blast Cells,Absolute DNR cells/L 0 1 Nucleated RBC,Absolute DNR cells/L 0 1 Total Neutrophils,% 51 % 38-80 1 Bands,% DNR % 0-10 1 Metamyelocytes,% DNR % 1 Myelocytes,% DNR % 1 Promyelocytes,% DNR % 1 Total Lymphocytes,% 38 % 15-49 1 Monocytes,% 9 % 0-13 1 Eosinophils,% 2 % 0-8 1 Basophils,% 0 % 0-2 1 Blasts,% DNR % 1 Nucleated RBC DNR /100WBC 0 1 RBC Morphology NORMAL 1 Anisocytosis DNR 1 Poikilocytosis DNR 1 Microcytosis DNR 1 Macrocytosis DNR 1 Polychromasia DNR 1 Hypochromasia DNR 1 Target Cells DNR 1 Basophilic Stippling DNR 1 Comment DNR 1 TSH & T4,Free 04/19/2010 TSH,3RD Generation 3.81 mIU/L 0.40-4.50 1, 68 T4,Free 1.0 ng/dL 0.8-1.8 1 Vitamin D, 25 Hydroxy 04/19/2010 Vitamin D,25-Oh,Total 35 ng/mL 30-100 1 Vitamin D,25-Oh,D3 35 ng/mL 1 Vitamin D,25-Oh,D2 <4 ng/mL 1, 69 1 FASTING 2 REFERENCE RANGES BELOW ARE APPLICABLE TO FEMALES FIRST TRIMESTER - 0.26 - 2.66 mIU/L SECOND TRIMESTER - 0.55 - 2.73 mIU/L THIRD TRIMESTER - 0.43 - 2.91 mIU/L 3 Relative blood cell counts (%) should be compared with absolute cell counts (cells/mcL). Relative counts may not be clinically meaningful if the absolute count of one or more cell type is decreased. Reference ranges for relative cell counts derived from: A Manual of Laboratory and Diagnostics Tests, 9th Ed, [employer], 2015. Pediatric Reference Intervals, 7th Ed, [facility] [facility] [employer], 2011. 4 GLUCOSE REFERENCE RANGE BASED ON FASTING SPECIMEN. 5 The upper reference limit for Creatinine is approximately 13% higher for people identified as -Afghan. 6 LDL-C is now calculated using the Aroldo calculation, which is a validated novel method providing better accuracy than the Friedewald equation in the estimation of LDL-C. Cade JARAMILLO et al.PRAKASH.2013;310(19):0284-3907 Desirable range <100 mg/dL for primary prevention; <70 mg/dL for patients with CHD or diabetic patients with >or=2 CHD risk factors. For additional information, please refer to http://education.[employer]etragenetics.Giphy/faq/CIO029(This link is being provided for informational/educational purposes only.) 7 For patients with diabetes plus 1 major ASCVD risk factor, treating to a non-HDL-C goal of <100 mg/dL (LDL-C of <70 mg/ dL) is considered a therapeutic option. 8 Relative blood cell counts (%) should be compared with absolute cell counts (cells/mcL). Relative counts may not be clinically meaningful if the absolute count of one or more cell type is decreased. Reference ranges for relative cell counts derived from: A Manual of Laboratory and Diagnostics Tests, 9th Ed, [employer], 2015. Pediatric Reference Intervals, 7th Ed, [employer], 2011. 9 GLUCOSE REFERENCE RANGE BASED ON FASTING SPECIMEN. 10 The upper reference limit for Creatinine is approximately 13% higher for people identified as -Afghan. 11 Relative blood cell counts (%) should be compared with absolute cell counts (cells/mcL). Relative counts may not be clinically meaningful if the absolute count of one or more cell type is decreased. Reference ranges for relative cell counts derived from: A Manual of Laboratory and Diagnostics Tests, 9th Ed, [employer], 2015. Pediatric Reference Intervals, 7th Ed, [employer], 2011. 12 GLUCOSE REFERENCE RANGE BASED ON FASTING SPECIMEN. 13 The upper reference limit for Creatinine is approximately 13% higher for people identified as -Afghan. 14 REFERENCE RANGES BELOW ARE APPLICABLE TO FEMALES FIRST TRIMESTER - 0.26 - 2.66 mIU/L SECOND TRIMESTER - 0.55 - 2.73 mIU/L THIRD TRIMESTER - 0.43 - 2.91 mIU/L 15 Relative blood cell counts (%) should be compared with absolute cell counts (cells/mcL). Relative counts may not be clinically meaningful if the absolute count of one or more cell type is decreased. Reference ranges for relative cell counts derived from: A Manual of Laboratory and Diagnostics Tests, 9th Ed, [employer], 2015. Pediatric Reference Intervals, 7th Ed, [employer], 2011. 16 GLUCOSE REFERENCE RANGE BASED ON FASTING SPECIMEN. 17 The upper reference limit for Creatinine is approximately 13% higher for people identified as -Afghan. 18 WE RECEIVED YOUR HANDWRITTEN TEST ORDER FOR A CHEMISTRY PANEL CONTAINING 8 TO 13 ANALYTES. WE PERFORMED THE AMA DEFINED BASIC METABOLIC PANEL. IF THIS IS NOT WHAT YOU INTENDED TO ORDER, PLEASE CONTACT YOUR LOCAL DISPLAYER AT SO THAT WE CAN ADJUST OUR BILLING APPROPRIATELY. YOU MAY ALSO INQUIRE ABOUT ALTERNATIVE OR ADDITIONAL TESTING. 19 LDL-CHOLESTEROL RISK CATEGORY* GOAL VERY HIGH (E.G. DIABETES + CVD) <70 MG/DL HIGH (DIABETICS; CHD RISK EQUIVALENTS) <100 MG/DL MODERATELY HIGH (MULTIPLE(2+) RISK FACTORS) <130 MG/DL 0 TO 1 RISK FACTORS <160 MG/DL * NCEP REPORT. CIRCULATION 2004; 110: [phone] 20 Target for non-HDL cholesterol is 30 mg/dL higher than LDL cholesterol target. 21 Relative blood cell counts (%) should be compared with absolute cell counts (cells/mcL). Relative counts may not be clinically meaningful if the absolute count of one or more cell type is decreased. Reference ranges for relative cell counts derived from: A Manual of Laboratory and Diagnostics Tests, 9th Ed, [employer], 2015. Pediatric Reference Intervals, 7th Ed, [employer], 2011. 22 LDL-CHOLESTEROL RISK CATEGORY* GOAL VERY HIGH (E.G. DIABETES + CVD) <70 MG/DL HIGH (DIABETICS; CHD RISK EQUIVALENTS) <100 MG/DL MODERATELY HIGH (MULTIPLE(2+) RISK FACTORS) <130 MG/DL 0 TO 1 RISK FACTORS <160 MG/DL * NCEP REPORT. CIRCULATION 2004; 110: [phone] 23 Target for non-HDL cholesterol is 30 mg/dL higher than LDL cholesterol target. 24 REFERENCE RANGES BELOW ARE APPLICABLE TO FEMALES FIRST TRIMESTER - 0.26 - 2.66 mIU/L SECOND TRIMESTER - 0.55 - 2.73 mIU/L THIRD TRIMESTER - 0.43 - 2.91 mIU/L 25 GLUCOSE REFERENCE RANGE BASED ON FASTING SPECIMEN. 26 The upper reference limit for Creatinine is approximately 13% higher for people identified as -Afghan. 27 LDL-CHOLESTEROL RISK CATEGORY* GOAL VERY HIGH (E.G. DIABETES + CVD) <70 MG/DL HIGH (DIABETICS; CHD RISK EQUIVALENTS) <100 MG/DL MODERATELY HIGH (MULTIPLE(2+) RISK FACTORS) <130 MG/DL 0 TO 1 RISK FACTORS <160 MG/DL * NCEP REPORT. CIRCULATION 2004; 110: 227-239 28 Target for non-HDL cholesterol is 30 mg/dL higher than LDL cholesterol target. 29 Relative blood cell counts (%) should be compared with absolute cell counts (cells/mcL). Relative counts may not be clinically meaningful if the absolute count of one or more cell type is decreased. Reference ranges for relative cell counts derived from: A Manual of Laboratory and Diagnostics Tests, 9th Ed, [employer], 2015. Pediatric Reference Intervals, 7th Ed, [employer], 2011. 30 Relative blood cell counts (%) should be compared with absolute cell counts (cells/mcL). Relative counts may not be clinically meaningful if the absolute count of one or more cell type is decreased. Reference ranges for relative cell counts derived from: A Manual of Laboratory and Diagnostics Tests, 9th Ed, [employer], 2015. Pediatric Reference Intervals, 7th Ed, [facility] [employer], 2011. 31 GLUCOSE REFERENCE RANGE BASED ON FASTING SPECIMEN. 32 The upper reference limit for Creatinine is approximately 13% higher for people identified as -Afghan. 33 25-OHD3 indicates both endogenous production and supplementation. 25-OHD2 is an indicator of exogenous sources such as diet or supplementation. Therapy is based on measurement of Total 25-OHD, with levels <20 ng/mL indicative of Vitamin D deficiency while levels between 20 ng/mL and 30 ng/mL suggest insufficiency. Optimal levels are > or=30ng/mL. For more information on this test, go to [email or web address]/faq/25-OHVitaminD 34 REFERENCE RANGES BELOW ARE APPLICABLE TO FEMALES FIRST TRIMESTER - 0.26 - 2.66 mIU/L SECOND TRIMESTER - 0.55 - 2.73 mIU/L THIRD TRIMESTER - 0.43 - 2.91 mIU/L 35 GLUCOSE REFERENCE RANGE BASED ON FASTING SPECIMEN. 36 The upper reference limit for Creatinine is approximately 13% higher for people identified as -Afghan. 37 LDL-CHOLESTEROL RISK CATEGORY* GOAL VERY HIGH (E.G. DIABETES + CVD) <70 MG/DL HIGH (DIABETICS; CHD RISK EQUIVALENTS) <100 MG/DL MODERATELY HIGH (MULTIPLE(2+) RISK FACTORS) <130 MG/DL 0 TO 1 RISK FACTORS <160 MG/DL * NCEP REPORT. CIRCULATION 2004; 110: [phone] 38 Target for non-HDL cholesterol is 30 mg/dL higher than LDL cholesterol target. 39 25-OHD3 indicates both endogenous production and supplementation. 25-OHD2 is an indicator of exogenous sources such as diet or supplementation. Therapy is based on measurement of Total 25-OHD, with levels <20 ng/mL indicative of Vitamin D deficiency while levels between 20 ng/mL and 30 ng/mL suggest insufficiency. Optimal levels are > or=30ng/mL. For more information on this test, go to http://education.MinuteBuzz/faq/25-OHVitaminD 40 REFERENCE RANGES BELOW ARE APPLICABLE TO FEMALES FIRST TRIMESTER - 0.26 - 2.66 mIU/L SECOND TRIMESTER - 0.55 - 2.73 mIU/L THIRD TRIMESTER - 0.43 - 2.91 mIU/L 41 GLUCOSE REFERENCE RANGE BASED ON FASTING SPECIMEN. 42 The upper reference limit for Creatinine is approximately 13% higher for people identified as -Afghan. 43 LDL-CHOLESTEROL RISK CATEGORY* GOAL VERY HIGH (E.G. DIABETES + CVD) <70 MG/DL HIGH (DIABETICS; CHD RISK EQUIVALENTS) <100 MG/DL MODERATELY HIGH (MULTIPLE(2+) RISK FACTORS) <130 MG/DL 0 TO 1 RISK FACTORS <160 MG/DL * NCEP REPORT. CIRCULATION 2004; 110: [phone] 44 Target for non-HDL cholesterol is 30 mg/dL higher than LDL cholesterol target. 45 GLUCOSE REFERENCE RANGE BASED ON FASTING SPECIMEN. 46 The upper reference limit for Creatinine is approximately 13% higher for people identified as -Afghan. 47 REFERENCE RANGES BELOW ARE APPLICABLE TO FEMALES FIRST TRIMESTER - 0.26 - 2.66 mIU/L SECOND TRIMESTER - 0.55 - 2.73 mIU/L THIRD TRIMESTER - 0.43 - 2.91 mIU/L 48 THE CURRENT LOT OF FREE T4 REAGENT AVAILABLE FROM THE [employer] PRODUCES RESULTS THAT ARE APPROXIMATELY 9% HIGHER THAN PREVIOUS REAGENT LOTS. PLEASE INTERPRET THESE RESULTS ACCORDINGLY. 49 25-OHD3 indicates both endogenous production and supplementation. 25-OHD2 is an indicator of exogenous sources such as diet or supplementation. Therapy is based on measurement of Total 25-OHD, with levels <20 ng/mL indicative of Vitamin D deficiency while levels between 20 ng/mL and 30 ng/mL suggest insufficiency. Optimal levels are > or=30ng/mL. For more information on this test, go to http://[email or web address]/faq/25-OHVitaminD 50 LDL-CHOLESTEROL RISK CATEGORY* GOAL VERY HIGH (E.G. DIABETES + CVD) <70 MG/DL HIGH (DIABETICS; CHD RISK EQUIVALENTS) <100 MG/DL MODERATELY HIGH (MULTIPLE(2+) RISK FACTORS) <130 MG/DL 0 TO 1 RISK FACTORS <160 MG/DL * NCEP REPORT. CIRCULATION 2004; 110: [phone] 51 INDEX INTERPRETATION ----- < OR=0.90 NEGATIVE 0.91 - 1.09 EQUIVOCAL > OR=1.10 POSITIVE DUE TO RECOMMENDATIONS BY THE FOOD AND DRUG ADMINISTRATION (FDA), ALL POSITIVE OR EQUIVOCAL BORELLIA BURGDORFERI ANTIBODY EIA (SCREENING) TESTS WILL BE FOLLOWED BY THE WESTERN BLOT. THE SCREENING TEST FOR B. BURGDORFERI HAS A LOW PREDICTIVE VALUE FOR A NEGATIVE RESULT WHEN USED TO DETECT EARLY INFECTION AND A LOW PREDICTIVE VALUE FOR A POSITIVE RESULT WHEN EXPOSURE HISTORY, SYMPTOMS, AND CLINICAL FINDINGS ARE NOT CONSISTENT WITH LYME DISEASE. POSITIVE OR EQUIVOCAL RESULTS SHOULD NOT BE INTERPRETED TRUE POSITIVES UNTIL A SECOND-STEP TESTING OF THE SPECIMEN IS DONE USING A METHOD THAT IS MORE SPECIFIC FOR ANTIBODIES TO B. BURGDORFERI (E.G. WESTERN BLOT). 52 IGG WESTERN BLOTS WHICH HAVE 5 (OR MORE) OF THE 10 SIGNIFICANT BANDS ARE CONSIDERED POSITIVE FOR SPECIFIC ANTIBODY TO B.BURGDORFERI. (PROCEEDINGS OF THE SECOND CONFERENCE OF LYME DISEASE. [place], [place], 1993.) 53 IGM WESTERN BLOTS WHICH HAVE 2 (OR MORE) OF THE 3 SIGNIFICANT BANDS ARE CONSIDERED POSITIVE FOR SPECIFIC ANTIBODY TO B.BURGDORFERI. (PROCEEDINGS OF THE SECOND CONFERENCE OF LYME DISEASE. [place], [place], 1993.) 54 LDL-CHOLESTEROL RISK CATEGORY* GOAL VERY HIGH (E.G. DIABETES + CVD) <70 MG/DL HIGH (DIABETICS; CHD RISK EQUIVALENTS) <100 MG/DL MODERATELY HIGH (MULTIPLE(2+) RISK FACTORS) <130 MG/DL 0 TO 1 RISK FACTORS <160 MG/DL * NCEP REPORT. CIRCULATION 2004; 110: [phone] 55 Target for non-HDL cholesterol is 30 mg/dL higher than LDL cholesterol target. 56 REFERENCE RANGES BELOW ARE APPLICABLE TO FEMALES FIRST TRIMESTER - 0.20 - 4.70 mIU/L SECOND TRIMESTER - 0.30 - 4.10 mIU/L THIRD TRIMESTER - 0.40 - 2.70 mIU/L 57 LDL-CHOLESTEROL RISK CATEGORY* GOAL VERY HIGH (E.G. DIABETES + CVD) <70 MG/DL HIGH (DIABETICS; CHD RISK EQUIVALENTS) <100 MG/DL MODERATELY HIGH (MULTIPLE(2+) RISK FACTORS) <130 MG/DL 0 TO 1 RISK FACTORS <160 MG/DL * NCEP REPORT. CIRCULATION 2004; 110: [phone] 58 GLUCOSE REFERENCE RANGE BASED ON FASTING SPECIMEN. 59 QUERY: @[facility] Pat ID: QUERY: @[facility] Req #: 60 Note: Persistent reduction for 3 months or more in an eGFR <60 mL/min/1.73 m2 defines CKD. Patients with eGFR values >/=60 mL/min/1.73 m2 may also have CKD if evidence of persistent proteinuria is present. The original MDRD equation for estimated GFR is not valid for patients less than 18 years of age. Additional information may be found at www.kdoqi.org. 61 QUERY: @[facility] Pat ID: QUERY: @[facility] Req #: 62 Recent studies consider the lower limit of 32.0 ng/mL to be a threshold for optimal health. Rogelio MELENDEZ. J Nutr. 2004;135(2):317-22. Performed at: RN - [facility] [address] [id number] [employer] Member: Donavon Noble MD, Phone: [phone] Interpretation Intact PTH Calcium (pg/mL) (mg/dL) Normal 15 - 65 8.6 - 10.2 Primary Hyperparathyroidism >65 >10.2 Secondary Hyperparathyroidism >65 <10.2 Non-Parathyroid Hypercalcemia <65 >10.2 Hypoparathyroidism <15 < 8.6 Non-Parathyroid Hypocalcemia 15 - 65 < 8.6 Performed at: RN - [facility] [address] [id number] [employer] Member: Donavon Noble MD, Phone: [phone] QUERY: @[facility] Pat ID: QUERY: @[facility] Req #: 65 LDL-CHOLESTEROL RISK CATEGORY* GOAL VERY HIGH (E.G. DIABETES + CVD) <70 MG/DL HIGH (DIABETICS; CHD RISK EQUIVALENTS) <100 MG/DL MODERATELY HIGH (MULTIPLE(2+) RISK FACTORS) <130 MG/DL 0 TO 1 RISK FACTORS <160 MG/DL * NCEP REPORT. CIRCULATION 2004; 110: [phone] 66 GLUCOSE REFERENCE RANGE BASED ON FASTING SPECIMEN. 67 LDL-CHOLESTEROL RISK CATEGORY* GOAL VERY HIGH (E.G. DIABETES + CVD) <70 MG/DL HIGH (DIABETICS; CHD RISK EQUIVALENTS) <100 MG/DL MODERATELY HIGH (MULTIPLE(2+) RISK FACTORS) <130 MG/DL 0 TO 1 RISK FACTORS <160 MG/DL * NCEP REPORT. CIRCULATION 2004; 110: [phone] 68 REFERENCE RANGES BELOW ARE APPLICABLE TO FEMALES FIRST TRIMESTER - 0.20 - 4.70 mIU/L SECOND TRIMESTER - 0.30 - 4.10 mIU/L THIRD TRIMESTER - 0.40 - 2.70 mIU/L 69 25-OHD3 indicates both endogenous production and supplementation. 25-OHD2 is an indicator of exogenous sources such as diet or supplementation. Therapy is based on measurement of Total 25-OHD, with levels <20 ng/mL indicative of Vitamin D deficiency while levels between 20 ng/mL and 30 ng/mL suggest insufficiency. Optimal levels are > or=30ng/mL. Procedures Date CPT Code Description Status 02/02/2018 69991 EKG-Tracing & Report Completed 12/24/2016 [id number] EKG-Tracing & Report Completed 12/19/2016 42658 Dxa Bone Density Axial [employer] Inc Vertebral Fracture Completed Assessment 12/19/2016 Bone Mineral Density Test Completed 12/10/2016 45028 Non-Invcorrotid/Comp /Bilat Study Completed 12/10/2016 01988 Echocardiography Completed 12/09/2016 93387 Non-Invcorrotid/Comp /Bilat Study Completed 07/01/2016 Mammogram Completed 11/21/2015 83303 EKG-Tracing & Report Completed 05/18/2015 09454 EKG-Tracing & Report Completed 08/11/2014 24689 EKG-Tracing & Report Completed 08/11/2014 52431 Bone Density Completed 07/14/2013 11213 Spirometry Graphic Record/Max Voluntary Vent Completed 07/13/2013 08320 Holter Monitor Office Completed 07/08/2013 54954 Non-Invcorrotid/Comp /Bilat Study Completed 07/06/2013 39746 Echocardiography Completed 06/12/2012 Colonoscopy Completed 06/11/2012 93422 EKG-Tracing & Report Completed 06/10/2012 52837 Holter Monitor Office Completed 06/09/2012 69167 Non-Invcorrotid/Comp /Bilat Study Completed 06/09/2012 10035 Echocardiography Completed 05/22/2011 14299 EKG-Tracing & Report Completed 05/21/2011 75866 Non-Invcorrotid/Comp /Bilat Study Completed 05/21/2011 58632 Echocardiography Completed 05/21/2011 30364 Holter Monitor Office Completed 04/19/2010 06965 Holter Monitor Office Completed 04/19/2010 48640 EKG-Tracing & Report Completed 04/17/2010 25071 Non-Invcorrotid/Comp /Bilat Study Completed 04/17/2010 73209 Echocardiography Completed Encounters Type Date Location Provider CPT E/M Dx Office Visit 02/04/2018 4:00p [place] [address] M25.551 G31.84 Office Visit 09/15/2017 8:00a [place] [address] M25.551 G31.84 Office Visit 05/12/2017 10:15a [place] [address] I50.32 G31.84 R59.0 Z23 Office Visit 01/09/2017 10:45a [place] [address] M54.31 M25.551 Office Visit 01/06/2017 11:15a [place] [address] M54.31 E78.5 M81.0 I50.32 Z00.01 G31.84 R23.9 Z23 Office Visit 08/23/2016 3:30p [place] [address] M25.531 Office Visit 07/08/2016 3:00p [place] [address] E78.5 M85.9 I50.32 R00.2 I65.23 Z23 Office Visit 03/05/2016 12:15p [place] [address] E78.5 M85.9 Office Visit 11/28/2015 10:30a [place] [address] E78.5 N95.0 Z00.01 G31.84 Z23 Office Visit 05/18/2015 6:30p [place] [address] N95.0 Z01.818 Office Visit 08/24/2014 9:00a [place] [address] 733.90 272.4 424.0 V72.2 V72.0 V70.0 GENERAL Office Visit 02/08/2014 11:00a [place] [address] 424.0 733.90 Office Visit 08/12/2013 1:00p [place] [address] 424.0 785.10 428.32 V72.2 V72.0 V70.0 GENERAL Office Visit 06/22/2012 10:30a [place] [address] 272.2 785.10 424.0 428.32 V72.2 V72.0 V06.1 V70.0 GENERAL Office Visit 12/12/2011 12:15p [place] [address] 088.81 GENERAL 272.2 785.6 709.8 Office Visit 12/03/2011 10:00a [place] [address] 088.81 272.2 424.0 268.9 GENERAL Office Visit 05/30/2011 12:15p [place] [address] 272.2 424.0 268.9 V72.0 V70.0 785.6 709.8 V04.81 GENERAL Office Visit 11/22/2010 2:00p [place] [address] 088.81 272.2 424.0 272.9 277.9 V72.2 V72.0 268.9 785.10 433.10 GENERAL Office Visit 04/26/2010 11:00a [place] [address] 272.2 424.0 V72.2 V72.0 268.9 V70.0 GENERAL Office Visit 04/03/2010 3:00p [place] [address] 272.2 691.8 733.00 424.0 V72.2 V72.0 268.9 785.10 433.10 GENERAL Office Visit 01/23/2010 3:10p Main Office Shea Tiwari M.D. 11282 691.8 Plan of Care Future Appointment(s):05/12/2018 2:15 pm - Joel Andrea MD at Main [id number] 9:00 am - Nurse at Main Office
--- OUTSIDE RECORDS SUMMARY | 2018-02-24 07:57 | XMS REPORT ---
:1940 External Reference #:[id number] Author Organization [facility] Address [address] [place] [address] Phone [phone] Care Team Providers Name Role Phone Joel Andrea MD Primary Care Physician Unavailable Payers Type Date Identification Numbers Payment Provider Subscriber Commercial Policy Number: [id number] Medicare Blue Ppo Hailey Damico PayID: [id number] [place] [address] Problems Date Description Provider Status Onset: 05/30/2011 [...] po qd Elyn 2010 s MD Emre [place] 3 / Fish 04/03/ Active 1000/200 1 [...] Influenza Virus (Afluria) Split Virus 3 Years [id number] Of Age And Older 92499 Given 01/06/2017 Pneumococcal Conjugate Vaccine 13 Valent For [id number] Intramuscular Use Q2037 Given 07/08/2016 Influenza Vaccine (Fluvirin) 5 Years Of Age Or [id number] Older Q2037 Given 11/28/2015 Influenza Vaccine (Fluvirin) 3 Years Of Age Or Older Q2038 Given 08/11/2014 Influenza Vaccine (Fluzone) Administered Age 3 And Older Q2038 Given 08/11/2014 Influenza Vaccine (Fluzone) Administered Age 3 329jd And Older Q2037 Given 07/13/2013 Influenza Vaccine (Fluvirin) 3 Years Of Age Or Older Q2037 Given 07/13/2013 Influenza Vaccine (Fluvirin) 5 Years Of Age Or 7kj4r Older 66945 Given 06/22/2012 Tetanus,Diphtheria,Adut/Adol Pertussis Q2037 Given 06/10/2012 Influenza Vaccine (Fluvirin) 3 Years Of Age Or Older Q2037 Given 06/10/2012 Influenza Vaccine (Fluvirin) 5 Years Of Age Or [id number] Older 85084 Given 03/18/2012 Zostavax 0071ae Q2036 Given 05/30/2011 Flulaval [id number] 77695 Given 05/04/2009 Influenza Vaccine 29921 Given 06/11/2007 [place] [address] Given 12/22/2003 Tetanus And Diptheria Toxiods Vital [...] 9.6 FL 7.5-12.5 1 Neutrophils,Absolute 2610 cells/L 7134-3930 1 Bands,Absolute PENDING 1 Metamyelocytes,Absolute PENDING 1 [...] A/G Ratio 1.7 1.0-2.5 1 Egfr Non-Afr. [place] 85 ML/MIN/1.73M2 > Or=60 1 Egfr 98 [...] 9.1 FL 7.5-12.5 Neutrophils,Absolute 1440 cells/L Low 1666-6588 Bands,Absolute PENDING Metamyelocytes,Absolute PENDING Myelocytes,Absolute PENDING Promyelocytes,Absolute [...] 10 BUN/Creatinine Ratio 18.3 6-22 Egfr Non-Afr. [place] 77 ML/MIN/1.73M2 > Or=60 Egfr 89 ML/MIN/1.73M2 > Or=60 CBC W/ Diff & PLT 05/06/2017 WBC 4.5 thous/L 3.8-10.8 RBC 4.38 mill/L 3.80-5.10 Hemoglobin 13.9 g/dL 11.7-15.5 Hematocrit 41.1 % 35.0-45.0 MCV 93.8 FL 80.0-100.0 MCH 31.9 pg 27.0-33.0 MCHC 34.0 g/dL 32.0-36.0 RDW 14.7 % 11.0-15.0 Platelet Count 215 thous/L 140-400 Platelet Sufficiency NORMAL Normal MPV 9.0 FL 7.5-12.5 Neutrophils,Absolute 2840 cells/L 0341-4094 Bands,Absolute PENDING Metamyelocytes,Absolute PENDING Myelocytes,Absolute PENDING Promyelocytes,Absolute [...] A/G Ratio 1.6 1.0-2.5 1 Egfr Non-Afr. [place] 82 ML/MIN/1.73M2 > Or=60 1 Egfr 96 [...] 9.0 FL 7.5-12.5 1 Neutrophils,Absolute 2400 cells/L 7273-0204 1 Bands,Absolute PENDING 1 Metamyelocytes,Absolute PENDING 1 [...] 22.9 High 6-22 1, 18 Egfr Non-Afr. [place] 76 ML/MIN/1.73M2 > Or=60 1 Egfr 88 [...] 9.7 FL 7.5-11.5 1 Neutrophils,Absolute 2540 cells/L 9592-5058 1 Bands,Absolute PENDING 1 Metamyelocytes,Absolute PENDING 1 [...] MPV 9.6 FL 7.5-11.5 Neutrophils,Absolute 2900 cells/L 2393-2318 Bands,Absolute PENDING Metamyelocytes,Absolute PENDING Myelocytes,Absolute PENDING Promyelocytes,Absolute [...] 9.7 FL 7.5-11.5 1 Neutrophils,Absolute 3840 cells/L 3656-9980 1 Bands,Absolute PENDING 1 Metamyelocytes,Absolute PENDING 1 [...] A/G Ratio 1.6 1.0-2.5 1 Egfr Non-Afr. [place] 71 ML/MIN/1.73M2 > Or=60 1 Egfr 83 [...] Platelet Sufficiency PENDING 1 Neutrophils,Absolute 3260 cells/L 7468-1770 1 Bands,Absolute PENDING 1 Metamyelocytes,Absolute PENDING 1 [...] A/G Ratio 1.8 1.0-2.5 1 Egfr Non-Afr. [place] 71 ML/MIN/1.73M2 > Or=60 1 Egfr 82 [...] 233 thous/L 140-400 1 Neutrophils,Absolute 2800 cells/L 6497-8879 1 Lymphocytes,Absolute 1510 cells/L 850-3900 1 Monocytes,Absolute [...] A/G Ratio 1.8 1.0-2.1 1 Egfr Non-Afr. [place] 81 ML/MIN/1.73M2 > Or=60 1 Egfr 94 [...] Sufficiency NORMAL Normal 1 Neutrophils,Absolute 2320 cells/L 5573-7367 1 Lymphocytes,Absolute 1450 cells/L 850-3900 1 Monocytes,Absolute [...] A/G Ratio 1.7 1.0-2.1 1 Egfr Non-Afr. [place] 64 ML/MIN/1.73M2 > Or=60 1 Egfr 74 [...] Sufficiency NORMAL Normal 1 Neutrophils,Absolute 2530 cells/L 3239-5745 1 Lymphocytes,Absolute 1670 cells/L 850-3900 1 Monocytes,Absolute [...] A/G Ratio 1.8 1.0-2.1 1 Egfr Non-Afr. [place] >60 ML/MIN/1.73M2 > Or=60 1 Egfr >60 [...] Sufficiency NORMAL Normal 1 Neutrophils,Absolute 2100 cells/L 8542-5806 1 Bands,Absolute DNR cells/L 0-750 1 Metamyelocytes,Absolute [...] Goldstein, 2015. Pediatric Reference Intervals, 7th Ed, [facility] Press, 2011. 4 GLUCOSE REFERENCE RANGE BASED ON FASTING SPECIMEN. 5 The upper reference limit for Creatinine is approximately 13% higher for people identified as -Anguillan. 6 LDL-C is now calculated using the Aroldo calculation, which is a validated novel method providing better accuracy than the Friedewald equation in the estimation of LDL-C. Cade JARAMILLO et al.PRAKASH.2013;310(19):4888-3457 Desirable range <100 mg/dL for primary prevention; <70 mg/dL for patients with CHD or diabetic patients with >or=2 CHD risk factors. For additional information, please refer to http://education.Whirlpool.Legend of the Elf/faq/SKT685(This link is being provided for informational/educational purposes [...] approximately 13% higher for people identified as -Anguillan. 11 Relative blood cell counts (%) should [...] approximately 13% higher for people identified as -[place]guillan. 14 REFERENCE RANGES BELOW ARE APPLICABLE TO [...] approximately 13% higher for people identified as -[place]guillan. 18 WE RECEIVED YOUR HANDWRITTEN TEST ORDER FOR A CHEMISTRY PANEL CONTAINING 8 TO 13 ANALYTES. WE PERFORMED THE AMA DEFINED BASIC METABOLIC PANEL. IF THIS IS NOT WHAT YOU INTENDED TO ORDER, PLEASE CONTACT YOUR LOCAL HAUL DRIVER AT SO THAT WE CAN ADJUST OUR [...] approximately 13% higher for people identified as -[place]guillan. 27 LDL-CHOLESTEROL RISK CATEGORY* GOAL VERY HIGH [...] Goldstein, 2015. Pediatric Reference Intervals, 7th Ed, [facility] Press, 2011. 31 GLUCOSE REFERENCE RANGE BASED ON FASTING SPECIMEN. 32 The upper reference limit for Creatinine is approximately 13% higher for people identified as -Anguillan. 33 25-OHD3 indicates both endogenous production and supplementation. 25-OHD2 is an indicator of exogenous sources such as diet or supplementation. Therapy is based on measurement of Total 25-OHD, with levels <20 ng/mL indicative of Vitamin D deficiency while levels between 20 ng/mL and 30 ng/mL suggest insufficiency. Optimal levels are > or=30ng/mL. For more information on this test, go to http://Sharingforce.Surf Air/faq/25-OHVitaminD 34 REFERENCE RANGES BELOW ARE APPLICABLE TO FEMALES FIRST TRIMESTER - 0.26 - 2.66 mIU/L SECOND TRIMESTER - 0.55 - 2.73 mIU/L THIRD TRIMESTER - 0.43 - 2.91 mIU/L 35 GLUCOSE REFERENCE RANGE BASED ON FASTING SPECIMEN. 36 The upper reference limit for Creatinine is approximately 13% higher for people identified as -Anguillan. 37 LDL-CHOLESTEROL RISK CATEGORY* GOAL VERY HIGH [...] more information on this test, go to http://education.Surf Air/faq/25-OHVitaminD 40 REFERENCE RANGES BELOW ARE APPLICABLE TO FEMALES FIRST TRIMESTER - 0.26 - 2.66 mIU/L SECOND TRIMESTER - 0.55 - 2.73 mIU/L THIRD TRIMESTER - 0.43 - 2.91 mIU/L 41 GLUCOSE REFERENCE RANGE BASED ON FASTING SPECIMEN. 42 The upper reference limit for Creatinine is approximately 13% higher for people identified as -Anguillan. 43 LDL-CHOLESTEROL RISK CATEGORY* GOAL VERY HIGH [...] approximately 13% higher for people identified as -[place]guillan. 47 REFERENCE RANGES BELOW ARE APPLICABLE TO FEMALES FIRST TRIMESTER - 0.26 - 2.66 mIU/L SECOND TRIMESTER - 0.55 - 2.73 mIU/L THIRD TRIMESTER - 0.43 - 2.91 mIU/L 48 THE CURRENT LOT OF FREE T4 REAGENT AVAILABLE FROM THE MAINTENANCE SPECIALIST PRODUCES RESULTS THAT ARE APPROXIMATELY 9% HIGHER [...] more information on this test, go to http://Sharingforce.Surf Air/faq/25-OHVitaminD 50 LDL-CHOLESTEROL RISK CATEGORY* GOAL VERY HIGH [...] OF THE SECOND CONFERENCE OF LYME DISEASE. [place], [place], 1993.) 53 IGM WESTERN BLOTS WHICH HAVE 2 (OR MORE) OF THE 3 SIGNIFICANT BANDS ARE CONSIDERED POSITIVE FOR SPECIFIC ANTIBODY TO B.BURGDORFERI. (PROCEEDINGS OF THE SECOND CONFERENCE OF LYME DISEASE. [place], [place], 1993.) 54 LDL-CHOLESTEROL RISK CATEGORY* GOAL [...] RANGE BASED ON FASTING SPECIMEN. 59 QUERY: @[facility] Pat ID: QUERY: @[facility] Req #: 60 Note: Persistent reduction for [...] may be found at www.kdoqi.org. 61 QUERY: @[facility] Pat ID: QUERY: @[facility] Req #: 62 Recent studies consider the lower limit of 32.0 ng/mL to be a threshold for optimal health. Rogelio MELENDEZ. J Nutr. 2004;135(2):317-22. Performed at: RN - [facility] [address] [id number] Forge Helper: Donavon Noble MD, Phone: [phone] Interpretation Intact PTH Calcium (pg/mL) (mg/dL) Normal 15 - 65 8.6 - 10.2 Primary Hyperparathyroidism >65 >10.2 Secondary Hyperparathyroidism >65 <10.2 Non-Parathyroid Hypercalcemia <65 >10.2 Hypoparathyroidism <15 < 8.6 Non-Parathyroid Hypocalcemia 15 - 65 < 8.6 Performed at: RN - [facility] [address] [id number] Forge Helper: Donavon Noble MD, Phone: [phone] QUERY: @[facility] Pat ID: QUERY: @[facility] Req #: 65 LDL-CHOLESTEROL RISK CATEGORY* GOAL [...] Procedures Date CPT Code Description Status 02/02/2018 35859 EKG-Tracing & Report Completed 12/24/2016 72847 EKG-Tracing & Report Completed 12/19/2016 48691 Dxa Bone Density [employer] Vertebral Fracture Completed Assessment 12/19/2016 Bone Mineral Density Test Completed 12/10/2016 36560 Non-Invcorrotid/Comp /Bilat Study Completed 12/10/2016 20676 Echocardiography Completed 12/09/2016 97703 Non-Invcorrotid/Comp /Bilat Study Completed 07/01/2016 Mammogram Completed 11/21/2015 55877 EKG-Tracing & Report Completed 05/18/2015 70305 EKG-Tracing & Report Completed 08/11/2014 78247 EKG-Tracing & Report Completed 08/11/2014 67793 Bone Density Completed 07/14/2013 09199 Spirometry Graphic Record/Max Voluntary Vent Completed 07/13/2013 17742 Holter Monitor Office Completed 07/08/2013 13497 Non-Invcorrotid/Comp /Bilat Study Completed 07/06/2013 18910 Echocardiography Completed 06/12/2012 Colonoscopy Completed 06/11/2012 65167 EKG-Tracing & Report Completed 06/10/2012 31849 Holter Monitor Office Completed 06/09/2012 86011 Non-Invcorrotid/Comp /Bilat Study Completed 06/09/2012 72956 Echocardiography Completed 05/22/2011 12949 EKG-Tracing & Report Completed 05/21/2011 74529 Non-Invcorrotid/Comp /Bilat Study Completed 05/21/2011 10351 Echocardiography Completed 05/21/2011 68592 Holter Monitor Office Completed 04/19/2010 67628 Holter Monitor Office Completed 04/19/2010 90417 EKG-Tracing & Report Completed 04/17/2010 85280 Non-Invcorrotid/Comp /Bilat Study Completed 04/17/2010 63943 Echocardiography Completed Encounters Type Date Location Provider CPT E/M Dx Office Visit 09/15/2017 8:00a [place] [address] M25.551 G31.84 Office Visit 05/12/2017 10:15a [place] [address] I50.32 G31.84 R59.0 Z23 Office Visit 01/09/2017 10:45a [place] [address] M54.31 M25.551 Office Visit 01/06/2017 11:15a [place] [address] M54.31 E78.5 M81.0 I50.32 Z00.01 G31.84 R23.9 Z23 Office Visit 08/23/2016 3:30p [place] [address] M25.531 Office Visit 07/08/2016 3:00p [place] [address] E78.5 M85.9 I50.32 R00.2 I65.23 Z23 Office Visit 03/05/2016 12:15p Main Office Elyn Ring, 76166 E78.5 M85.9 Office Visit 11/28/2015 10:30a Main Office Elyn Ring, 11830 E78.5 N95.0 Z00.01 G31.84 Z23 Office Visit 05/18/2015 6:30p Main Office Elyn Ring, 28443 N95.0 Z01.818 Office Visit 08/24/2014 9:00a Main Office [place] 055[address] 733.90 272.4 424.0 V72.2 V72.0 V70.0 GENERAL Office Visit 02/08/2014 11:00a Main Office [place]lyn RingMD 49454 424.0 733.90 Office Visit 08/12/2013 1:00p Main Office Elyn RingMD 49961 424.0 785.10 428.32 V72.2 V72.0 V70.0 GENERAL Office Visit 06/22/2012 10:30a [place] [address] 272.2 785.10 424.0 428.32 V72.2 V72.0 V06.1 V70.0 GENERAL Office Visit 12/12/2011 12:15p Main Office Elyn RingMD 16064 088.81 GENERAL 272.2 785.6 709.8 Office Visit 12/03/2011 10:00a Main Office Elyn RingMD 22928 088.81 272.2 424.0 268.9 GENERAL Office Visit 05/30/2011 12:15p Main Office Elyn MD Emre 53190 272.2 424.0 268.9 V72.0 V70.0 785.6 709.8 V04.81 GENERAL Office Visit 11/22/2010 2:00p Main Office Elyn Ring, 19482 088.81 272.2 424.0 272.9 277.9 V72.2 V72.0 268.9 785.10 433.10 GENERAL Office Visit 04/26/2010 11:00a Main Office Elyn RingMD 65526 272.2 424.0 V72.2 V72.0 268.9 V70.0 GENERAL Office Visit 04/03/2010 3:00p Main Office Elyn RingMD 97323 272.2 691.8 733.00 424.0 V72.2 V72.0 268.9 785.10 433.10 GENERAL Office Visit 01/23/2010 3:10p Main Office Shea Tiwari M.D. 94059 691.8 Plan of Care Future Appointment(s):02/18/2018 3:00 pm - Joel Andrea MD at Main [id number] - Griselda Patterson Medication:Alendronate Sodium 70 mg
[2018-02-24] MEDS ORDERED: Midazolam* 1 MG/ML 2 ML VIAL (2 MG) ONE ×2 (09:09→10:48)
[2018-02-24] MEDS ORDERED: KETAMINE HCL* 50 MG/ML 10 ML VIAL ONE (09:09)
[2018-02-24] MEDS ORDERED: ROPIVACAINE 5 MG/ML 30 ML BTL (0.5%) ONE (09:10)
[2018-02-24] MEDS ORDERED: Lidocaine 2% PF * 5 ML VIAL ONE (09:10)
[2018-02-24] MEDS ORDERED: Sterile Water for Inj* 20 ML ONE (09:10)
[2018-02-24] MEDS ORDERED: fentaNYL* 50 MCG/ML 2 ML VIAL (100 MCG VIAL) ONE (09:10)
[2018-02-24] MEDS ORDERED: Bupivacaine 0.5% PF 10 ML VIAL INJ ONE (09:10)
[2018-02-24] MEDS ORDERED: Dexamethasone IV* 4 MG/ML 1 ML (4 MG) ONE (09:11)
[2018-02-24] MEDS ORDERED: EPHEDrine (Pressors)* 50 MG/ML VIAL ONE (11:00)
[2018-02-24] MEDS ORDERED: HYDROmorphone INJ* 0.5 MG/0.5 ML SYRINGE IV PRN (11:22)
[2018-02-24] MEDS ORDERED: Ketorolac INJ* 30 MG/ML 1 ML VIAL IV PRN (11:22)
[2018-02-24] MEDS ORDERED: Acetaminophen IV 1GM/100ML * 1,000 MG/100 ML VIAL IVPB ONE (11:22)
[2018-02-24] MEDS ORDERED: Naloxone* 0.4 MG/ML 1 ML VIAL IV PRN (11:22)
[2018-02-24] MEDS ORDERED: Propofol* 10 MG/ML 20 ML BTL IV PUSH ONE (12:24)
[2018-02-24] MEDS ORDERED: Morphine INJ* 2 MG/ML 1 ML SYRINGE (TWO MG - NEW SYRINGE VERSION) IV PRN (13:04)
[2018-02-24] MEDS ORDERED: diPHENhydraMINE IV* 50 MG/ML 1 ml VIAL (BENADRYL) IV PRN (13:04)
[2018-02-24] MEDS ORDERED: Bisacodyl SUPP* 10 MG SUPP PR PRN (13:04)
[2018-02-24] MEDS ORDERED: Magnesium Hydroxide LIQ* 30 ML UDC PO PRN (13:04)
[2018-02-24] MEDS ORDERED: oxyCODONE TAB* 5 MG TAB PO PRN (13:04)
[2018-02-24] MEDS ORDERED: Cyclobenzaprine TAB* 10 MG PO PRN (13:04)
--- NOTE | 2018-02-24 13:31 | RAD ---
INDICATION: Total right hip replacement surgery. COMPARISON: Comparison is made with a prior x-ray study of the right hip from January 14, 2018. TECHNIQUE: An AP view of the pelvis was obtained in the operating room. FINDINGS: The patient is undergoing a total right hip replacement surgery. The acetabular prostheses is in place and there is a femoral prostheses template in place. IMPRESSION: INTRAOPERATIVE CONTROL FILMS.
[2018-02-24] MEDS ORDERED: Acetaminophen TAB* 325 MG PO SCH (14:00)
--- NOTE | 2018-02-24 14:02 | RAD ---
HISTORY: S/P RTHA, status post right hip arthroplasty COMPARISONS: January 14, 2018 VIEWS: 3, Frontal view of the pelvis with frontal and crosstable lateral views of the right hip FINDINGS: BONE DENSITY: There is diffuse osteopenia. BONES: The patient is status post right hip arthroplasty. There is no hardware failure or osteolysis. JOINTS: The patient is status post right hip arthroplasty. 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 ALIGNMENT: There is no dislocation. SOFT TISSUES: There is postsurgical change to the soft tissues. OTHER FINDINGS: Degenerative changes are noted of the lower lumbar spine. IMPRESSION: STATUS POST RIGHT HIP ARTHROPLASTY
[2018-02-24] MEDS ORDERED: Acetaminophen IV 1GM/100ML * 100 ML ONE (15:12)
[2018-02-24] MEDS ORDERED: Warfarin TAB(*) 6 MG PO ONE (17:00)
[2018-02-24] MEDS: ceFAZolin 1 GM in Dextrose (*) 1 GM/50 ML BAG IVPB SCH (17:47)
[2018-02-24] MEDS ORDERED: traMADol TAB* 50 MG ONE (18:52)
[2018-02-24] MEDS: Ondansetron INJ* 2 MG/ML VIAL IV PRN (19:06)
[2018-02-24] MEDS: Magnesium Hydroxide LIQ* 30 ML UDC PO SCH (19:45)
[2018-02-24] MEDS: Docusate CAP* 100 MG PO SCH (19:45)
[2018-02-24] MEDS: oxyCODONE/Acetamin 5/325 MG* TAB PO PRN (21:32)
[2018-02-24] MEDS: Acetaminophen TAB* 325 MG PO SCH (22:54)
[2018-02-25] MEDS: ceFAZolin 1 GM in Dextrose (*) 1 GM/50 ML BAG IVPB SCH ×2 (01:59→10:38)
[2018-02-25] MEDS: oxyCODONE/Acetamin 5/325 MG* TAB PO PRN ×4 (01:59→19:32)
[2018-02-25 06:21] LABS: Hematocrit 34 % (35-47); Hemoglobin 11.5 g/dl (12.0-16.0); Mean Platelet Volume 8.6 um3 (7.4-10.4); Platelet Count 181 10^3/ul (150-450)
[2018-02-25] MEDS: Acetaminophen TAB* 325 MG PO SCH (06:21)
[2018-02-25 06:35] LABS: INR 1.07 (0.77-1.02)
[2018-02-25] MEDS ORDERED: Acetaminophen TAB* 325 MG PO PRN (08:25)
[2018-02-25] MEDS: Magnesium Hydroxide LIQ* 30 ML UDC PO SCH ×2 (08:31→19:34)
[2018-02-25] MEDS: Vitamin THERAPEUTIC TAB PO SCH (08:32)
[2018-02-25] MEDS: Docusate CAP* 100 MG PO SCH ×2 (08:32→19:33)
[2018-02-25 09:19] LABS: EGFR Non-African American 90.2 (>60)
--- NOTE | 2018-02-25 09:33 | PN ---
Progress Note - Progress Note Date of Service: 02/25/18 SOAP: Subjective: []Patient seen at bedside. She vomit while I was in the room, but did not feel nauseous before or after this occurrence. Denies chest pain, shortness of breath , dizziness, lightheadedness, leg numbness or RLE pain. Has had low BPs overnight. Objective: []General: Well appearing, NAD. Vomit x 1 while I was in the room, nausea came on and passed quickly RLE: Right hip dressing CDI without surrounding erythema. Thigh is soft, DF/PF intact, 2+ DP, sensation intact to light touch distally. BL LE: Calves are supple and nontender without erythema, edema or palpable cords Assessment: []POD 1 s/p right total hip arthroplasty 02/[address] Clinton Plan: []WBAT PT/OT, hip precautions Lovenox bridge to coumadin, coumadin 6 mg today Bolus 1 liter LR Vital Signs Temp 97.5 F 02/25/18 07:23 Pulse 65 02/25/18 07:23 Resp 16 02/25/18 07:49 BP 85/50 02/25/18 08:22 Pulse Ox 95 02/25/18 07:23 Intake & Output 02/24/18 02/25/18 02/25/18 18:59 06:59 18:59 Intake Total 1350 550 Output Total 300 1850 Balance 1050 -1300 Weight 126 lb Intake: IV Fluids 1350 LR 1300 NS 50ML, Cefazolin 2G 50 Oral 550 Output: Fine 300 1850 Other: # Bowel Movements 0 Estimated Blood Loss <200 Comment Laboratory Last Values Hgb 11.5 g/dl (12.0-16.0) L 02/25/18 05:51 Hct 34 % (35-47) L 02/25/18 05:51 Plt Count 181 10^3/ul (150-450) 02/25/18 05:51 MPV 8.6 um3 (7.4-10.4) 02/25/18 05:51 INR (Anticoag Therapy) 1.07 (0.77-1.02) H 02/25/18 05:51 Sodium 135 mmol/L (135-145) 02/25/18 05:51 Potassium 4.9 mmol/L (3.5-5.0) 02/25/18 05:51 Chloride 99 mmol/L (101-111) L 02/25/18 05:51 Carbon Dioxide 29 mmol/L (22-32) 02/25/18 05:51 Anion Gap 7 mmol/L (2-11) 02/25/18 05:51 BUN 10 mg/dL (6-24) 02/25/18 05:51 Creatinine 0.64 mg/dL (0.51-0.95) 02/25/18 05:51 Est GFR ( Amer) 109.2 (>60) 02/25/18 05:51 Est GFR (Non-Af Amer) 90.2 (>60) 02/25/18 05:51 BUN/Creatinine Ratio 15.6 (8-20) 02/25/18 05:51 Glucose 143 mg/dL (70-100) H 02/25/18 05:51 Calcium 8.6 mg/dL (8.6-10.3) 02/25/18 05:51
[2018-02-25] MEDS: Ondansetron INJ* 2 MG/ML VIAL IV PRN (11:48)
[2018-02-25] MEDS: Enoxaparin(*) 30 MG/0.3 ML SYR SUBCUT SCH (11:48)
--- NOTE | 2018-02-25 13:28 | OP ---
DATE OF OPERATION: 02/24/18 - ROOM #343 DATE OF : 44 ATTENDING SURGEON: Katiana Clinton MD LICENSED PSYCHIATRIC TECHNICIAN: JASBIR Millard. Frankie did help throughout the procedure with preparation of the leg, wound retraction, manipulation of the hip, and wound closure. ANESTHESIOLOGIST: Dr. Salinas. ANESTHESIA: Spinal. PRE-OP DIAGNOSIS: Severe end-stage degenerative osteoarthritis of the right hip joint. POST-OP DIAGNOSIS: Severe end-stage degenerative osteoarthritis of the right hip joint. OPERATIVE PROCEDURE: Right total hip arthroplasty. COMPLICATIONS: None. ESTIMATED BLOOD LOSS: 200 cc. SPECIMENS: Femoral head and acetabular reaming sent to pathology. HARDWARE USED: This is uncemented Loved.la total hip arthroplasty hardware. For the cup, a Tritanium cluster hole shell 52D, a single 25-mm and a single 16- mm cancellous bone screw were used. For the liner, a Trident X3 0-degree polyethylene insert 32D. For the stem, an Accolade TMZF size 3 with 127-degree neck angle. For the head, a Biolox delta ceramic V40, femoral head 32 +0. BRIEF HISTORY/INDICATIONS: Ms. Damico is a 78-year-old female with years of increasingly severe right hip pain. Radiograph showed [id number] arthritis. She failed conservative treatment with the anti-inflammatories, pain medication , and physical therapy. Due to continued pain and decreased quality of life, she elected to undergo right total hip arthroplasty. Informed consent was obtained from the patient. She understood the risks of surgery included, but were not limited to bleeding, infection, damage to nearby structures, continued pain, need for further surgery, intra-operative fracture, nerve palsy, hardware failure or loosening, dislocation, leg length discrepancy, stroke, heart attack , blood clot, and . She wished to proceed. INTRAOPERATIVE FINDINGS: Intraoperatively, the patient was noted to have severe end-stage arthritis with complete loss of cartilage along the femoral head and acetabulum. She had significant osteophyte formation around the femoral head neck junction and the rim of the acetabulum. Significant osteopenia was noted. DESCRIPTION OF PROCEDURE: Ms. Damico was identified in the preoperative anesthesia unit. Her right lower extremity was marked as the correct operative side. Consent was signed and placed in the chart. The patient was taken to the operating room and placed under spinal anesthesia. A Fine catheter was placed. She was placed in the left lateral decubitus position on the peg board. All bony prominences were well padded. Right lower extremity was prepped and draped in the usual sterile fashion. Preop time-out was made to correctly identify the patient's side and site. Appropriate perioperative antibiotics were given within 1 hour of incision. A 12 cm posterior hip incision was made with a 10 blade and carried down to the lateral fascial layer. Lateral facial layer was incised in line with the skin incision. Charnley retractor was placed. The piriformis and conjoint tendons were readily visualized. These were elevated off the posterolateral femur using electrocautery and tagged with #5 Ethibond. Next, electrocautery was then used to make a standard posterolateral capsular flap and this was also tagged with #5 Ethibond. The patient's hip was carefully dislocated. Lesser troch to the center of the femoral head measured 57 mm. Oscillating saw was used to make the appropriate femoral neck cut and the head was carefully removed. The femur was retracted anteriorly carefully. After appropriate placement of retractor, the acetabulum was easily visualized. Long-handled knife was used to sharply remove any remaining labrum from the acetabular rim. The acetabulum was sequentially reamed up to a size 51. Bleeding subchondral bone bed was obtained. A 51 trial had excellent fit and stability. Final implant chosen was a Tritanium cluster hole shell 52D. This was impacted into the acetabulum without difficulty. There was good stability as well as appropriate anteversion and abduction angle. Due to the patient's osteopenia, two screws were placed in the superior posterior quadrant for extra stability. Next, a Trident X3 0-degree polyethylene insert 32D was chosen and this was impacted into the acetabulum. Stability of the insert was checked and rechecked and noted to be stable. Next, attention was turned to preparation of the femur. A canal finder was used to enter the proximal femur. The femur was sequentially broached up to a size 3. Size 3 broach had good fit and appropriate anteversion. A 127 neck trial and a 32 +0 head trial was chosen. The hip was reduced and taken through a range of motion. The hip was stable in all positions. There was good soft tissue tension and appropriate leg lengths. The hip was carefully dislocated. All trials were removed. Final implant chosen was an Accolade TMZF size 3 with a 127 neck angle. This was impacted into the femoral canal without difficulty. The stem was stable with appropriate anteversion. A 32 +0 Biolox delta ceramic V40 femoral head was chosen. This was impacted onto the femoral neck. Final lesser troch to the center of the femoral head measurement was 58 mm. The hip was reduced and taken through a range of motion. The hip was stable in all positions. There was good soft tissue tension and appropriate leg lengths. The wound was copiously irrigated with sterile saline. The previously tagged capsule and tendons were reapproximated to the posterolateral femur through two trochanteric drill holes. Lateral fascial layer was closed using interrupted # 1 Vicryl. The rest of the incision was closed in a layered fashion using 0 and 2-0 Vicryls. Skin was closed using running 3-0 Monocryl and Dermabond. Sterile Adaptic, 4 x 4s, and paper tape were used to cover the incision. The patient's anesthesia was reversed without difficulty. She was taken to the PACU in stable condition. Intended weightbearing will be weightbearing as tolerated. Intended DVT prophylaxis will be Coumadin with a Lovenox bridge. [id number]/[facility] #: [id number] [place]
[2018-02-25] MEDS ORDERED: Warfarin TAB(*) 6 MG PO SCH (17:00)
[2018-02-26] MEDS: oxyCODONE/Acetamin 5/325 MG* TAB PO PRN ×3 (00:08→08:39)
[2018-02-26 06:06] LABS: Hematocrit 32 % (35-47); Hemoglobin 10.8 g/dl (12.0-16.0); Mean Platelet Volume 8.4 um3 (7.4-10.4); Platelet Count 171 10^3/ul (150-450)
[2018-02-26 06:09] LABS: INR 2.59 (0.77-1.02)
[2018-02-26] MEDS: Docusate CAP* 100 MG PO SCH ×2 (08:38→21:39)
[2018-02-26] MEDS: Magnesium Hydroxide LIQ* 30 ML UDC PO SCH ×2 (08:39→21:40)
[2018-02-26] MEDS: Vitamin THERAPEUTIC TAB PO SCH (08:39)
[2018-02-26] MEDS: Ondansetron INJ* 2 MG/ML VIAL IV PRN (11:03)
[2018-02-26] MEDS: traMADol TAB* 50 MG PO PRN ×2 (11:35→17:59)
[2018-02-26] MEDS: Enoxaparin(*) 30 MG/0.3 ML SYR SUBCUT SCH (11:38)
--- NOTE | 2018-02-26 12:46 | PN ---
Progress Note - Progress Note Date of Service: 02/26/18 SOAP: Subjective: []Patient seen at bedside. Her low BP has improved and she is not experiencing any dizziness, lightheadedness, chest pain, shortness of breath, nausea or dizziness. Her right hip pain is still present but tolerable at this time. Objective: []General: Well appearing, NAD.ly RLE: Right hip dressing changed, incision is CDI without surrounding erythema. Thigh is soft, DF/PF intact, 2+ DP, sensation intact to light touch distally. BL LE: Calves are supple and nontender without erythema, edema or palpable cords Assessment: []POD 2 s/p right total hip arthroplasty 02/[address] Clinton Plan: []WBAT PT/OT, hip precautions therapeuticx INR reached. stop Lovenox, hold coumadin today She will likely stay until tomorrow as she has not yet met her goals with physical therapy. Vital Signs Temp 98.2 F 02/26/18 11:37 Pulse 70 02/26/18 11:37 Resp 15 02/26/18 11:37 BP 115/45 02/26/18 11:37 Pulse Ox 98 02/26/18 11:37 Intake & Output 02/25/18 02/26/18 02/26/18 18:59 06:59 18:59 Intake Total 2032 1650 480 Output Total 525 1200 800 Balance 1507 450 -320 Intake: IV Fluids 980 LR 980 IVPB 1052 LR 1052 Oral 1650 480 Output: Urine 325 1200 800 Emesis 200 Other: # Bowel Movements 0 Laboratory Last Values Hgb 10.8 g/dl (12.0-16.0) L 02/26/18 05:46 Hct 32 % (35-47) L 02/26/18 05:46 Plt Count 171 10^3/ul (150-450) 02/26/18 05:46 MPV 8.4 um3 (7.4-10.4) 02/26/18 05:46 INR (Anticoag Therapy) 2.59 (0.77-1.02) H 02/26/18 05:46 Sodium 135 mmol/L (135-145) 02/25/18 05:51 Potassium 4.9 mmol/L (3.5-5.0) 02/25/18 05:51 Chloride 99 mmol/L (101-111) L 02/25/18 05:51 Carbon Dioxide 29 mmol/L (22-32) 02/25/18 05:51 Anion Gap 7 mmol/L (2-11) 02/25/18 05:51 BUN 10 mg/dL (6-24) 02/25/18 05:51 Creatinine 0.64 mg/dL (0.51-0.95) 02/25/18 05:51 Est GFR ( Amer) 109.2 (>60) 02/25/18 05:51 Est GFR (Non-Af Amer) 90.2 (>60) 02/25/18 05:51 BUN/Creatinine Ratio 15.6 (8-20) 02/25/18 05:51 Glucose 143 mg/dL (70-100) H 02/25/18 05:51 Calcium 8.6 mg/dL (8.6-10.3) 02/25/18 05:51
[2018-02-27] MEDS: traMADol TAB* 50 MG PO PRN ×2 (00:11→08:54)
[2018-02-27 05:36] LABS: Hematocrit 30 % (35-47); Hemoglobin 10.1 g/dl (12.0-16.0); Mean Platelet Volume 8.4 um3 (7.4-10.4); Platelet Count 169 10^3/ul (150-450)
[2018-02-27 05:44] LABS: INR 3.7 (0.77-1.02)
[2018-02-27 06:34] VITALS: BP 129/51
[2018-02-27] MEDS: Docusate CAP* 100 MG PO SCH (09:12)
[2018-02-27] MEDS: Vitamin THERAPEUTIC TAB PO SCH (09:12)
[2018-02-27] MEDS: Magnesium Hydroxide LIQ* 30 ML UDC PO SCH (09:12)
--- NOTE | 2018-02-27 10:40 | PN ---
Progress Note - Progress Note Date of Service: 02/27/18 SOAP: Subjective: Pt sitting comfortably in chair. Minimal complaint of pain. Denies dizziness, lightheadedness, CP, SOB, F/C, N/V. Vital Signs: Temp Pulse Resp BP Pulse Ox 98.9 F 93 16 129/51 93 02/27/18 07:23 02/27/18 07:23 02/27/18 08:54 02/27/18 07:23 02/27/18 08:00 Laboratory Last Values Hgb 10.1 g/dl (12.0-16.0) L 02/27/18 05:10 Hct 30 % (35-47) L 02/27/18 05:10 Plt Count 169 10^3/ul (150-450) 02/27/18 05:10 MPV 8.4 um3 (7.4-10.4) 02/27/18 05:10 INR (Anticoag Therapy) 3.70 (0.77-1.02) H 02/27/18 05:10 Sodium 135 mmol/L (135-145) 02/25/18 05:51 Potassium 4.9 mmol/L (3.5-5.0) 02/25/18 05:51 Chloride 99 mmol/L (101-111) L 02/25/18 05:51 Carbon Dioxide 29 mmol/L (22-32) 02/25/18 05:51 Anion Gap 7 mmol/L (2-11) 02/25/18 05:51 BUN 10 mg/dL (6-24) 02/25/18 05:51 Creatinine 0.64 mg/dL (0.51-0.95) 02/25/18 05:51 Est GFR ( Amer) 109.2 (>60) 02/25/18 05:51 Est GFR (Non-Af Amer) 90.2 (>60) 02/25/18 05:51 BUN/Creatinine Ratio 15.6 (8-20) 02/25/18 05:51 Glucose 143 mg/dL (70-100) H 02/25/18 05:51 Calcium 8.6 mg/dL (8.6-10.3) 02/25/18 05:51 Objective: Dressing C/D/I. Calves soft, nontender. DP pulses 2+. Sensation intact to light touch distally. Assessment: 78 yo female s/p right KRYSTAL by Dr. Clinton POD #3 Plan: OOB PT/OT Pain Control DVT prophylaxis - Hold coumadin today and tomorrow. Take 2 mg on Friday. DC Home today with home health services.
--- NOTE | 2018-02-28 02:14 | DS ---
AMENDED REPORT NOW INLCUDES COSIGNER DESIGNATION - ESIGNED BEFORE ADJUSTMENT DISCHARGE SUMMARY: DATE OF ADMISSION: 02/24/18 DATE OF DISCHARGE: 02/27/18 ATTENDING PHYSICIAN: Katiana Clinton MD * (DICTATED BY JASBIR BRISENO) PRINCIPAL DIAGNOSIS: End-stage right hip osteoarthritis. SECONDARY DIAGNOSIS: Hepatitis. PRINCIPAL PROCEDURE: Right total hip arthroplasty. REASON FOR HOSPITALIZATION: Hailey is a 78-year-old female with a longstanding history of increasing severe right hip pain due to end-stage right hip osteoarthritis. She has failed conservative management and elected to proceed with right total hip arthroplasty. HOSPITAL COURSE: The patient was admitted to the hospital on 02/24/18. She underwent right total hip arthroplasty with Dr. Clinton without any complications. She was taken to the recovery room and subsequently the surgical stay unit in a stable condition. The patient has participated with occupational and physical therapy. On postop day #1, she did have some low blood pressures, which have resolved and throughout the rest of hospital course , vital signs remained stable including remaining afebrile. Hemoglobin and hematocrit were drawn daily during the hospital course. On the day of discharge , the hemoglobin was 10.1, hematocrit was 30. Her vital signs had remained stable and she was asymptomatic. Daily INR was drawn, which on postop day #2 was 2.59 and Coumadin was held. On the day of discharge, her INR was 3.70 and Coumadin was again held. She has had no other events during the hospital course. She was discharged on 02/27/18 to home in a stable condition. DISCHARGE INSTRUCTIONS: Weightbearing as tolerated. Okay to shower on postop day #3. No bathing, swimming, submerging wound. Use gentle soap, pat dry, cover with gauze, Lanre wrap, or tape. Call orthopedic office for increased drainage, redness, increased pain or fever. Go to the ER with shortness of breath or chest pain. Regular diet, increase fluids and fiber to prevent constipation. Continue to use stool softeners. Call office if no bowel movement within 48 hours. Continue hip precautions. Do not cross legs or bend greater than 90 degrees or squat. Continue physical therapy and occupational therapy exercises as shown. Visiting home nurse to do wound checks. [facility] will draw blood work for INR on Mondays and . Coumadin dosing, hold Coumadin on 02/27/18 and 02/28/18 , take 2 mg on 03/01/18. Pain control with Percocet 5/325 mg 1 to 2 tablets by mouth every 4 to 6 hours as needed for pain. Antibiotics required prior to any dental work. Follow up with Dr. Clinton within 10 to 14 days. Call the office for appointment. Please call Dr. Clinton's office with any questions or concerns, . JASBIR BRISENO [id number]/[facility] #: [id number] [facility] HOSPITALLeón
== END 2018-02-27 11:10 | disposition home health service (06) | DRG 470 ==
LOC: AA 07:49 → SSU 15:52
PROVIDERS: ADMIT Orthopaedic Surgery Adult Reconstructive Orthopaedic Surgery; ATTEND Orthopaedic Surgery Adult Reconstructive Orthopaedic Surgery
PROC: 0SR904A Replacement of Right Hip Joint with Ceramic on Polyethylene Synthetic Substitute, Uncemented, Open Approach (ICD-10-PCS; principal; 2018-02-24 10:00)
DX: M16.11 Unilateral primary osteoarthritis, right hip (principal); I95.9 Hypotension, unspecified; R11.10 Vomiting, unspecified; M25.751 Osteophyte, right hip; M85.88 Other specified disorders of bone density and structure, other site; Z82.49 Family history of ischemic heart disease and other diseases of the circulatory system; Z80.9 Family history of malignant neoplasm, unspecified; Z86.19 Personal history of other infectious and parasitic diseases
CPT/HCPCS: 36415; 72170; 80048; 85014; 85018; 85049; 85610; 88304; 88311; A9270-GY; C1713; C1776; G8978-GP-CI; G8978-GP-CJ; G8979-GP-CI; G8980-GP-CI; G8987-GO-CL; G8988-GO-CI; J0690; J1100; J1650; J2250; J2270; J2405; J2704; J2795; J3010